=== PATIENT | male | born 1965 | race Hispanic/Latino ===

== ENCOUNTER 2021-03-25 14:35 | Emergency (ER) | payer OTHER ==
[2021-03-25] MEDS ORDERED: LIDOCAINE VISCOUS 2% SOLN 15 ML UDC ONE (17:59)
[2021-03-25 18:11] LABS: Absolute Lymphocytes (CBC) 1.5 K/uL (0.7-4.9); Hematocrit 50.1 % (39.6-49.0); Lymphocytes % 21.1 % (15.3-44.8); MPV 10.2 fL (7.6-11.3); RBC Red Blood Cell Count 5.76 M/uL (4.33-5.43)
--- NOTE | 2021-03-25 18:17 | RAD REPORT ---
EXAM DESCRIPTION: CT - Abdomen Pelvis W Contrast - 03/25/2021 6:08 pm CLINICAL HISTORY: urinary retention, prostate surgery 2 weeks earlier COMPARISON: <Comparisons> TECHNIQUE: Biphasic, helical CT imaging of the abdomen and pelvis was performed following 100 ml non -ionic IV contrast. No oral contrast was given. All CT scans are performed using dose optimization technique as appropriate and may include automated exposure control or mA/KV adjustment according to patient size. FINDINGS: No suspicious findings in the lung bases. The liver, spleen, and pancreas show no suspicious focal findings. Liver does show a mild diffuse fat ty infiltration. Gallbladder and biliary tree are also without suspicious finding. Symmetric renal function is seen with no hydronephrosis or suspicious renal mass. No pyelonephritis o r acute parenchymal process. Several small renal cysts are present. No adrenal abnormalities. Partially filled urinary bladder shows no evidence for abnormal retention. There is no wall thickenin g, mass, stone or other acute bladder finding. There is heterogeneous diminished attenuation centrall y within the prostate gland along the expected course of the prostatic urethra. There is heterogeneit y of the prostate parenchyma. No stranding or edema in the adjacent fat. No dilated bowel loops or bowel wall thickening. Patient has pronounced sigmoid diverticulosis withou t diverticulitis. No appendicitis or other acute GI process identifiable. No free air, free fluid or inflammatory stranding. No hernia, mass or bulky lymphadenopathy. No suspicious bony findings. IMPRESSION: Postsurgical or post procedure changes are evident in the central prostate gland. No spe cific CT finding that would indicate abscess or prostate infection. Urinary bladder is mostly contracted. No wall thickening or edema. No acute renal or ureteral process .
[2021-03-25 18:27] LABS: Potassium 3.6 mmol/L (3.5-5.1)
[2021-03-25 18:50] LABS: Urine Blood 2+ (Negative); Urine Glucose 2+ (Negative); Urine Protein Negative (Negative)
[2021-03-25 19:12] LABS: Urine Bacteria <20 /HPF (NONE SEEN); Urine RBC <5 /HPF (NONE SEEN)
--- NOTE | 2021-03-25 19:23 | EDPHYS ---
Physician Documentation [facility] Name: Kavon Francis Age: 56 yrs Sex: Male : 1965 Arrival Date: 03/25/2021 Time: 14:40 Bed 5 Private MD: ED Physician David Harrison Historical: - Allergies: 03/25 15:09 No Known Allergies; jd3 - Home Meds: 15:09 insulin [Active]; jd3 - PMHx: 15:09 Diabetes - IDDM; Hypertension; jd3 - PSHx: 15:09 None; jd3 - Immunization history:: Adult Immunizations up to date. - Social history:: Smoking status: Patient reports the use of cigarette tobacco products, denies chronic smoking, but will smoke occasionally. Vital Signs: 15:09 BP 158 / 105; Pulse 98; Resp 17 S; Temp 97.5(TE); Pulse Ox 98% on R/A; Weight 81.65 kg jd3 (R); Height 5 ft. 8 in. (172.72 cm) (R); Pain 10/10; 17:00 BP 148 / 88; Pulse 87; Resp 15; Pulse Ox 97% on R/A; hb 18:00 BP 142 / 71; Pulse 81; Resp 15; Pulse Ox 98% on R/A; hb 19:45 BP 132 / 70; Pulse 80; Resp 18; Pulse Ox 98% ; ea 15:09 Body Mass Index 27.37 (81.65 kg, 172.72 cm) jd3 MDM: 16:56 Patient medically screened. pm1 19:20 Data reviewed: vital signs. Data interpreted: Pulse oximetry: on room air is 98 %. pm1 Interpretation: normal. Counseling: I had a detailed discussion with the patient and/or guardian regarding: the historical points, exam findings, and any diagnostic results supporting the discharge/admit diagnosis, lab results, radiology results, the need for outpatient follow up, for definitive care, a urologist, to return to the emergency department if symptoms worsen or persist or if there are any questions or concerns that arise at home. 03/25 17:11 Order name: Urine Microscopic Only; Complete Time: 19:20 pm1 03/25 17:11 Order name: CBC with Diff pm1 03/25 17:11 Order name: Bladder Scanner; Complete Time: 17:59 pm1 03/25 17:11 Order name: BMP; Complete Time: 18:48 pm1 03/25 17:11 Order name: CT Abd/Pelvis - IV Contrast Only; Complete Time: 18:23 pm1 03/25 18:49 Order name: Urine Dipstick-Ancillary; Complete Time: 19:03 EDMS 03/25 17:11 Order name: Urine Dipstick-Ancillary (obtain specimen); Complete Time: 18:50 pm1 Administered Medications: No medications were administered Disposition: 03/25/21 19:23 Discharged to Home. Impression: Dysuria, Other urethral stricture. - Condition is Stable. - Discharge Instructions: Dysuria. - Medication Reconciliation Form, Thank You Letter, Antibiotic Education, Prescription Opioid Use form. - Follow up: Emergency Department; When: As needed; Reason: Worsening of condition. Follow up: Private Physician; When: 2 - 3 days; Reason: Recheck today's complaints, Continuance of care, Re-evaluation by your physician. - Problem is new. - Symptoms have improved. Addendum: 03/26/2021 09:53 Co-signature as Attending Physician, David Harrison MD. r n 12:44 Addendum: HPI: This 56 yrs old male presents ambulatory to the ER with complaints of p m1 dysuria. Onset of symptoms for 2 weeks. Associated symptoms and signs: Pertinent positives: suprapubic abdominal pain. pertinent negatives: n/v/d, fever, burning with urination. Chest pain, shortness of breath. Severity of pain: worse since onset of symptoms. The patient has been having difficulty urinating for 1 year. 1 month ago he had surgery in [place] to correct the issue. Has was urinating without any issues until 2 weeks ago when he started having to strain to urinate. 12:50 Addendum: ROS: Constitutional: Negative for fever, chills, and weight loss. p m1 Cardiovascular: negative for chest pain, palpitations, and edema, Respiratory: negative for shortness of breath, cough, and pleuritic chest pain. Back: Negative for injury and pain. : positive for dysuria. Negative for burning with urination and discharge. MS/Extremity: negative for injury and deformity, Skin: Negative for injury, rash, and discoloration. Neuro: Negative for headache, weakness, numbness, tingling. Abdomen/GI: Positive for suprapubic pain. Negative for n/v/d All other systems are negative . 12:55 Addendum: Exam: Constitutional: This is a well developed, well nourished patient who is p m1 awake, alert, and in no acute distress. Head/face: Normocephalic, atraumatic. Eyes: exam in negative for acute changes, EOMI. ENT: Mouth and lips normal, oral mucosa: normal, pink, and intact, moist. Cardiovascular: Regular rate, rhythm. Mo pulse deficits. Respiratory: Exam negative for acute changes. No respiratory distress, shortness of breath. Breath sounds clear to auscultation. Abdomen/GI: Soft all quadrants. Tenderness to suprapubic area. Back: No CVA or spinal tenderness. Neuro: Exam negative for acute changes. Orientation is normal. mentation is normal. Motor is normal , moves all fours. 13:01 Addendum: MDM: Initial bladder scan result 25 ml and 60 ml. Patient has a stricture at p m1 distal end of urinary meatus. However, patient is able to void in the ER and apparently empty bladder by himself. Patient does not require a alfaro and can be discharged to follow up with urology. Signatures: Dispatcher [employer] EDMS David Harrison MD MD rn Marinas, Patrick, RAGINI PROFESSIONAL DRIVER pm1 Brandy Mcallister RN RN ea Davies, Jonathon, RN RN jd3 Corrections: (The following items were deleted from the chart) 03/25 18:25 17:11 Alfaro ordered. pm1 sv 20:00 19:23 03/25/2021 19:23 Discharged to Home. Impression: Dysuria; Other urethral ea stricture. Condition is Stable. Forms are Medication Reconciliation Form, Thank You Letter, Antibiotic Education, Prescription Opioid Use. Follow up: Emergency Department; When: As needed; Reason: Worsening of condition. Follow up: Private Physician; When: 2 - 3 days; Reason: Recheck today's complaints, Continuance of care, Re-evaluation by your physician. Problem is new. Symptoms have improved. pm1
--- NOTE | 2021-03-25 19:23 | ER ---
Nurse's Notes [facility] Name: Kavon Francis Age: 56 yrs Sex: Male : 1965 Arrival Date: 03/25/2021 Time: 14:40 Bed 5 Private MD: Diagnosis: Dysuria;Other urethral stricture Presentation: 03/25 15:06 Chief complaint: Patient states: "I have been having problems using the restroom a long jd3 with other problems using the restroom. I go to use the restroom and it barely comes out. I am supposed to see the Urologist, but they can't get me an appointment. It am having a lot of problems getting it out and I really have to push to get it out. In [place] I had an operation on my prostate and I don't know if something went wrong or what was even done to it. all of this started about 2 weeks after my surgery.". Coronavirus screen: At this time, the client does not indicate any symptoms associated with coronavirus-19. Ebola Screen: Patient negative for fever greater than or equal to 101.5 degrees Fahrenheit, and additional compatible Ebola Virus Disease symptoms. Initial Sepsis Screen: Does the patient meet any 2 criteria? No. Patient's initial sepsis screen is negative. Does the patient have a suspected source of infection? No. Patient's initial sepsis screen is negative. Risk Assessment: Do you want to hurt yourself or someone else? Patient reports no desire to harm self or others. Onset of symptoms was February 21, 2021. 15:06 Method Of Arrival: Ambulatory jd3 15:06 Acuity: LUCI 3 jd3 Historical: - Allergies: 15:09 No Known Allergies; jd3 - Home Meds: 15:09 insulin [Active]; jd3 - PMHx: 15:09 Diabetes - IDDM; Hypertension; jd3 - PSHx: 15:09 None; jd3 - Immunization history:: Adult Immunizations up to date. - Social history:: Smoking status: Patient reports the use of cigarette tobacco products, denies chronic smoking, but will smoke occasionally. Screenin:56 Abuse screen: Denies threats or abuse. Denies injuries from another. Nutritional sv screening: No deficits noted. Tuberculosis screening: No symptoms or risk factors identified. Fall Risk None identified. Assessment: 17:05 General: Appears in no apparent distress. Behavior is calm, cooperative. Pain: Pain hb currently is 6 out of 10 on a pain scale. Neuro: Level of Consciousness is awake, alert, obeys commands, Oriented to person, place, time, situation. Cardiovascular: Patient's skin is warm and dry. Respiratory: Respiratory effort is even, unlabored, Respiratory pattern is regular, symmetrical. GI: No signs and/or symptoms were reported involving the gastrointestinal system. : Reports inability to void. EENT: No signs and/or symptoms were reported regarding the EENT system. Derm: Skin is pink, warm \\T\\ dry. Musculoskeletal: No signs and/or symptoms reported regarding the musculoskeletal system. 17:05 General: Appears in no apparent distress. comfortable, well developed, Behavior is sv calm, cooperative, appropriate for age. Pain: Complains of pain in suprapubic area Pain does not radiate. Pain currently is 10 out of 10 on a pain scale. Neuro: Level of Consciousness is awake, alert, obeys commands, Oriented to person, place, time, situation, Moves all extremities. Full function Gait is steady. Respiratory: Airway is patent Respiratory effort is even, unlabored, Respiratory pattern is regular, symmetrical. : Reports inability to void, completely. Derm: Skin is pink, warm \\T\\ dry. 17:58 Reassessment: Pt to CT. hb 18:43 Reassessment: Patient appears in no apparent distress at this time. Patient and/or hb family updated on plan of care and expected duration. Pain level reassessed. Patient is alert, oriented x 3, equal unlabored respirations, skin warm/dry/pink. 19:58 Reassessment: Patient and/or family updated on plan of care and expected duration. Pain ea level reassessed. Patient is alert, oriented x 3, equal unlabored respirations, skin warm/dry/pink. Discharge instruction given to patient verbalized the understanding of instruction. Pt left ED ambulatory tolerating well. Vital Signs: 15:09 BP 158 / 105; Pulse 98; Resp 17 S; Temp 97.5(TE); Pulse Ox 98% on R/A; Weight 81.65 kg jd3 (R); Height 5 ft. 8 in. (172.72 cm) (R); Pain 10/10; 17:00 BP 148 / 88; Pulse 87; Resp 15; Pulse Ox 97% on R/A; hb 18:00 BP 142 / 71; Pulse 81; Resp 15; Pulse Ox 98% on R/A; hb 19:45 BP 132 / 70; Pulse 80; Resp 18; Pulse Ox 98% ; ea 15:09 Body Mass Index 27.37 (81.65 kg, 172.72 cm) jd3 ED Course: 14:40 Patient arrived in ED. wm 15:08 Triage completed. jd3 15:10 Arm band placed on. jd3 16:53 Jaylon Borges, RAGINI is PHCP. pm1 16:53 David Harrison MD is Attending Physician. pm1 16:56 Katie Costello, ESTELA is Primary Nurse. sv 16:56 Patient has correct armband on for positive identification. Bed in low position. Call sv light in reach. Door closed. Head of bed lowered. 17:38 TRANSLATE FOR PROVIDER AND PATIENT SAMI SPEAKING. [facility] 17:57 Multiple failed attempts to place alfaro 16F down to 8F, CABINET PROFESSIONAL Jaylon notified. hb 18:08 CT Abd/Pelvis - IV Contrast Only In Process Unspecified. EDMS 18:50 Urine Microscopic Only Sent. 5 18:50 Urine collected: clean catch specimen, clear. 5 19:03 TRANSLATED FOR PROVIDER AND PATIENT SAMI SPEAKING . [facility] 19:07 Report given to Brandy PALMER and Justin PALMER. sv 19:08 Primary Nurse role handed off by Katie Costello RN 19:59 IV discontinued, intact, bleeding controlled, No redness/swelling at site. Pressure ea dressing applied. Administered Medications: No medications were administered Outcome: 19:23 Discharge ordered by MD. pm1 19:59 Discharged to home ambulatory, with family. ea 19:59 Condition: stable 19:59 Discharge instructions given to patient, Instructed on discharge instructions, follow up and referral plans. Demonstrated understanding of instructions, follow-up care. 20:00 Patient left the ED. ea Signatures: Dispatcher [employer] EDMS Katie Costello RN RN sv Marinas, Patrick, RAGINI CABINET PROFESSIONAL pm1 Lidia Schofield RN RN hb Martinez, Maria [facility] Brandy Mcallister RN RN ea Davies, Jonathon, RN RN jd3 Marsh, Wendy Corrections: (The following items were deleted from the chart) 15:12 15:06 Chief complaint: Patient states: "I have been having problems using the restroom jd3 a long with other problems using the restroom. I go to use the restroom and it barely comes out. I am supposed to see the Urologist, but they can't get me an appointment." jd3 15:13 15:06 Chief complaint: Patient states: "I have been having problems using the restroom jd3 a long with other problems using the restroom. I go to use the restroom and it barely comes out. I am supposed to see the Urologist, but they can't get me an appointment. It am having a lot of problems getting it out and I really have to push to get it out." jd3 15:14 15:06 Chief complaint: Patient states: "I have been having problems using the restroom jd3 a long with other problems using the restroom. I go to use the restroom and it barely comes out. I am supposed to see the Urologist, but they can't get me an appointment. It am having a lot of problems getting it out and I really have to push to get it out. In [place] I had an operation on my prostate and I don't know if something went wrong or what was even done to it." jd3 17:59 17:56 Reassessment: hb hb
[2021-03-25 20:04] VITALS: TEMP 97.5
[2021-03-25 20:07] VITALS: O2SAT 98
[2021-03-25 20:09] VITALS: BP 132/70
[2021-03-25 21:03] LABS: Blood Morphology Comment NOT SEEN (NOT SEEN); Platelet Estimate ADEQ
== END 2021-03-25 20:00 | disposition home or self-care (01) ==
LOC: ER 14:35
DX: N35.819 Other urethral stricture, male, unspecified site (principal); I10 Essential (primary) hypertension; E11.9 Type 2 diabetes mellitus without complications; Z79.4 Long term (current) use of insulin; F17.210 Nicotine dependence, cigarettes, uncomplicated
CPT/HCPCS: 85025; 80048; 36415; 82565; 74177; Q9967; 81003; 81015; 99283

== ENCOUNTER 2022-11-02 12:47 | Emergency (ER) | payer OTHER ==
--- OUTSIDE RECORDS SUMMARY | 2022-11-02 12:50 | XMS REPORT | Continuity of Care Document ---
:1965 [address] [facility] t Address [address] [place] [address] Care Team Providers Name Role Phone Unavailable Unavailable Unavailable Problems This patient has no known problems. Allergies, Adverse Reactions, Alerts This patient has no known allergies or adverse reactions. Medications This patient has no known medications. Procedures This patient has no known procedures. Results Test Description Test Time Test Comments Results Result Comments Source HEMOGLOBIN A1c 2022-03-28 06:44:10 Test Item Value Reference Range Interpretation Comme nts HEMOGLOBIN A1c (test code = 13.0 % 4.2-5.6 H [employer] [address]44) GUIDELINES FOR HGB A1C: PREDIABETES/INC REASED RISK . . . . . . . 5.7-6.4% ROSS GNOSIS OF DIABETES . . . . . . . . . >=6 .5% WITH CONFIRMATION OR APPROPRIATE SYM PTOMS NOTE: ASSAY MAY BE AFFECTED BY HEM OGLOBINOPATHIES (SICKLE CELL ANEMIA, S- C DISEASE, OTHERS) OR ARTIFICIALLY LO WERED BY DECREASED RED CELL SURVIVAL ( HEMOLYTIC ANEMIAS, BLOOD LOSS, ETC.). CO NSIDER ALTERNATE TESTING OR LABORATORY C ONSULTATION. TSH, THIRD [id number] 05:35:36 Test Item Value Reference Range Interpretation Comments TSH, THIRD GENERATION (test code 2.730 UIU/ML 0.400-4.100 = 2821) PSA, [id number] 05:35:36 Test Item Value Reference Range Interpretation Comments PSA, TOTAL 0.46 NG/ML See_Comment NOTE: Methodol ogy is Josi (test code = Eric Electroch emiluminescence 2606) Immunoassay tra ceable to WHO reference stand korina 96/760. UNLESS OTHERWIS E INDICATED, ALL TESTING PERFORM ED ATCLINICAL PATHOLOGY LABOR [employer] [address] [place] [id number] LABORATORY DIRE CTOR: EDUARD JACOBS M.D. CLIA NUMBER [id number] [facility] [place] [id number] [A utomated message] The sy stem which generated this result transmitted ref erence range: <=4.00. The ref erence range was not used to int erpret this result as eran l/abnormal. LIPID [id number] 05:07:51 Test Item Value Reference Range Interpretation Comments CHOLESTEROL (test 272 MG/DL <200 H code = 2210) TRIGLYCERIDES (test 572 MG/DL <150 H code = 2232) HDL CHOLESTEROL 33 MG/DL >39 L (test code = 2220) CALC LDL CHOL (test (NOTE) MG/DL <100 UNABLE T O CALCULATE A code = 2237) VALID LDL WALTER STEROL WHEN THE TRIGLYCERIDEVAL UE IS GREATER THAN 40 0 MG/DL.UNABLE TO CALCULATE A TEE ID LDL CHOLESTEROL WHE N THE TRIGLYCERIDEVAL UE IS GREATER THAN 40 0 MG/DL. NOTE: CALCULATE D LDL IS BASED ON NATALIE -SILVA METHOD WHICHINC LUDES ADJUSTABLE TRIGLYCERIDE:VL DL CHOLESTEROL RAT IO.THIS FACTOR VARIES B Y MEASURED TRIGLY CERIDE AND NON-HDLCHOL ESTEROL CONCENTRATIONS WITH INCREASED CALCU LATED LDL SEENIN HIGH ER TRIGLYCERIDE OR LOWER NON-HDL SPECIME NS. FOR MOREINFORMATION , SEE CLIENT ANNOUNCE MENT AT [email or web address]-[email or web address] RISK RATIO LDL/HDL (NOTE) RATIO <3.55 UNABLE T O CALCULATE (test code = 2238) COMPREHENSIVE METABOLIC [id number] 05:07:51 Test Item Value Reference Range Interpretation Comments GLUCOSE (test code = 381 MG/DL 70-99 H 2216) BUN (test code = 30 MG/DL 6-20 H 2207) CREATININE (test 1.57 MG/DL 0.80-1.40 H code = 2214) eGFR (2020 CKD-EPI) 51 ML/MIN/1.73 >60 L (test code = 08529) CALC BUN/CREAT (test 19 RATIO 6-28 code = 2235) SODIUM (test code = 137 MEQ/L 345-450 1641) POTASSIUM (test code 5.2 MEQ/L 3.5-5.4 = 2227) CHLORIDE (test code 98 MEQ/L 95-107 = 2214) CARBON DIOXIDE (test 26 MEQ/L 19-31 code = 2206) CALCIUM (test code = 10.4 MG/DL 8.5-10.5 2208) PROTEIN, TOTAL (test 7.9 G/DL 6.1-8.3 code = 222) ALBUMIN (test code = 4.7 G/DL 3.5-5.2 2200) CALC GLOBULIN (test 3.2 G/DL 1.9-3.7 code = 2240) CALC A/G RATIO (test 1.5 RATIO 1.0-2.6 code = 2234) BILIRUBIN, TOTAL 0.6 MG/DL See_Comment [Automated message] (test code = 220) The syste m which generated this result transmit rosalinda reference range : <=1.2. The refe rence range was not u sed to interpret th is result as normal/abnormal . ALKALINE PHOSPHATASE 105 U/L 40-123 (test code = 2203) AST (test code = 13 U/L 9-50 2217) ALT (test code = 20 U/L 5-50 2218) VITAMIN D, 25 [id number] 04:30:45 Test Item Value Reference Range Interpretation Comments VITAMIN D, 25 OH 21 NG/ML SEE BELOW L NOTE: 25-H YDROXYVITAMIN D (test code = 4958) ASSAY INC LUDES 25-HYDROXYVITAM IN D2 AND D3. METHODOLOGY IS CHEMILUMINESCEN T IMMUNOASSAY. INTERPRETIVE RA NGES PEDIATRIC (<17 YEARS) . . . . . . . . . . . NG/ML 20-100ADULT: IN SUFFICIENT . . . . . . . . . . . . . . NG/ML <20 SUBOP TIMAL . . . . . . . . . . . . . . . NG/ML 20-29 OPT IMAL . . . . . . . . . . . . . . . . . NG/ML 30-100 CBC W/AUTO DIFF WITH [id number] 02:32:39 Test Item Value Reference Range Interpretation Comments WBC (test code = 4.7 K/UL 3.5-11.0 1001) RBC (test code = 5.68 M/UL 4.50-6.10 1002) HEMOGLOBIN (test code 16.8 G/DL 13.5-17.0 = 1003) HEMATOCRIT (test code 51.4 % 40.0-51.0 H = 1004) MCV (test code = 90.5 fL 80.0-99.0 1005) MCH (test code = 29.6 PG 25.0-33.0 1006) MCHC (test code = 32.7 G/DL 31.0-36.0 1007) RDW (test code = 13.0 % 11.5-15.0 1038) NEUTROPHILS (test 51.4 % code = 1008) LYMPHOCYTES (test 34.8 % code = 1010) MONOCYTES (test code 11.0 % = 1011) EOSINOPHILS (test 1.5 % code = 1012) BASOPHILS (test code 0.9 % = 1013) IMMATURE GRANULOCYTES 0.4 % (test code = 1036) NUCLEATED RBCS (test 0.0 /100 WBC'S See_Comment [Aut omated code = 1065) message] The sy stem which generated this result transmitted reference range : 0.0. The refere nce range was not u sed to interpret th is result as normal/abnormal . PLATELET COUNT (test 172 K/UL 130-400 code = 1015) ABSOLUTE NEUTROPHILS 2.39 K/UL 1.50-7.50 (test code = 1066) ABSOLUTE LYMPHOCYTES 1.62 K/UL 1.00-4.00 (test code = 1067) ABSOLUTE MONOCYTES 0.51 K/UL 0.20-1.00 (test code = 1068) ABSOLUTE EOSINOPHILS 0.07 K/UL 0.00-0.50 (test code = 1040) ABSOLUTE BASOPHILS 0.04 K/UL 0.00-0.20 (test code = 1069) ABS IMMATURE 0.02 K/UL 0.00-0.10 GRANULOCYTES (test code = 1020) ABS NUCLEATED RBCS 0.00 K/UL 0.00-0.11 (test code = 82534)
[2022-11-02] MEDS ORDERED: TENECTEPLASE 50 MG/10 ML VIAL IV ONE (12:58)
[2022-11-02] MEDS ORDERED: ASPIRIN 81 MG CHEWABLE TABLET ONE (12:58)
[2022-11-02] MEDS ORDERED: CLOPIDOGREL 75 MG TABLET ONE (12:59)
[2022-11-02] MEDS ORDERED: MORPHINE 4 MG/ML SYR ONE (13:02)
[2022-11-02] MEDS ORDERED: ONDANSETRON 4 MG/2 ML VIAL ONE (13:02)
[2022-11-02 13:11] LABS: Hematocrit 52.8 % (39.6-49.0); Lymphocytes % 25.5 % (15.3-44.8); MCV 89.1 fL (80-100); MPV 9.5 fL (7.6-11.3); RBC Red Blood Cell Count 5.93 M/uL (4.33-5.43)
[2022-11-02] MEDS ORDERED: HEPARIN/D5W 25,000 UNIT/500 ML BAG IV ONE (13:22)
--- NOTE | 2022-11-02 13:30 | EDPHYS ---
Physician Documentation [facility] Name: Kavon Francis Age: 57 yrs Sex: Male : 1965 Arrival Date: 11/02/2022 Time: 12:50 Bed 12 Private MD: ED Physician Robel Samuels HPI: 11/02 13:26 This 57 yrs old Male presents to ER via Ambulatory with complaints of Chest kdr Pain. 13:27 Patient started with chest pain that started about an hour prior to arrival. Patient kdr has some nausea but no vomiting. Patient states that the chest pain is nonradiating.. Onset: The symptoms/episode began/occurred suddenly, just prior to arrival, 1 hour(s) ago. Severity of symptoms: At their worst the symptoms were moderate severe incapacitating just prior to arrival, in the emergency department the symptoms are unchanged. The patient has not experienced similar symptoms in the past. The patient has not recently seen a physician. Historical: - Allergies: 12:51 No Known Allergies; kr3 12:51 No Known Allergies; iw - Home Meds: 12:51 metformin [Active]; Enalapril Oral [Active]; iw - PMHx: 12:51 Diabetes - IDDM; Hypertension; kr3 12:51 Diabetes - IDDM; Hypertension; iw - Immunization history:: Adult Immunizations up to date. - Social history:: Smoking status: unknown. ROS: 13:27 Constitutional: Negative for fever, chills, and weight loss, Eyes: Negative for injury, kdr pain, redness, and discharge, ENT: Negative for injury, pain, and discharge, Neck: Negative for injury, pain, and swelling, Respiratory: Negative for shortness of breath, cough, wheezing, and pleuritic chest pain, Abdomen/GI: Negative for abdominal pain, nausea, vomiting, diarrhea, and constipation, Back: Negative for injury and pain, : Negative for injury, bleeding, discharge, and swelling, MS/Extremity: Negative for injury and deformity, Skin: Negative for injury, rash, and discoloration, Neuro: Negative for headache, weakness, numbness, tingling, and seizure activity. Psych: Negative for depression, anxiety, suicide ideation, homicidal ideation, and hallucinations, Allergy/Immunology: Negative for hives, rash, and allergies, Endocrine: Negative for neck swelling, polydipsia, polyuria, polyphagia, and marked weight changes, Hematologic/Lymphatic: Negative for swollen nodes, abnormal bleeding, and unusual bruising. 13:27 Cardiovascular: Positive for chest pain, Negative for edema, orthopnea, palpitations, paroxysmal nocturnal dyspnea. 13:27 Abdomen/GI: Positive for nausea, Negative for vomiting, diarrhea, constipation. Exam: 13:27 Constitutional: This is a well developed, well nourished patient who is awake, alert, kdr and in moderate distress. Head/Face: Normocephalic, atraumatic. Eyes: Pupils equal round and reactive to light, extra-ocular motions intact. Lids and lashes normal. Conjunctiva and sclera are non-icteric and not injected. Cornea within normal limits. Periorbital areas with no swelling, redness, or edema. Neck: Trachea midline, no thyromegaly or masses palpated, and no cervical lymphadenopathy. Supple, full range of motion without nuchal rigidity, or vertebral point tenderness. No Meningismus. Chest/axilla: Normal chest wall appearance and motion. Nontender with no deformity. No lesions are appreciated. Cardiovascular: Regular rate and rhythm with a normal S1 and S2. No gallops, murmurs, or rubs. Normal PMI, no JVD. No pulse deficits. Respiratory: Lungs have equal breath sounds bilaterally, clear to auscultation and percussion. No rales, rhonchi or wheezes noted. No increased work of breathing, no retractions or nasal flaring. Abdomen/GI: Soft, non-tender, with normal bowel sounds. No distension or tympany. No guarding or rebound. No evidence of tenderness throughout. Back: No spinal tenderness. No costovertebral tenderness. Full range of motion. Skin: Warm, dry with normal turgor. Normal color with no rashes, no lesions, and no evidence of cellulitis. MS/ Extremity: Pulses equal, no cyanosis. Neurovascular intact. Full, normal range of motion. Neuro: Awake and alert, GCS 15, oriented to person, place, time, and situation. Cranial nerves II-XII grossly intact. Motor strength 5/5 in all extremities. Sensory grossly intact. Cerebellar exam normal. Normal gait. Psych: Awake, alert, with orientation to person, place and time. Behavior, mood, and affect are within normal limits. 13:27 ECG was reviewed by the Attending Physician. Vital Signs: 12:51 BP 150 / 94; Pulse 61; Resp 18; Pulse Ox 97% ; Weight 81 kg (M); Height 5 ft. 7 in. iw (170.18 cm); Pain 8/10; 13:05 BP 149 / 98; Pulse 69; Resp 22 S; Temp 98.0(TE); Pulse Ox 96% on R/A; iw 13:15 BP 157 / 99; Pulse 75; Resp 16; Pulse Ox 98% on R/A; iw 12:51 Body Mass Index 27.97 (81.00 kg, 170.18 cm) iw MDM: 13:30 Patient medically screened. kdr 13:30 Data reviewed: vital signs, nurses notes, lab test result(s), EKG, radiologic studies. kdr Management of patient was discussed with the following: District Manager Primary Care Sales: Dr. rodriguez. I considered the following discharge prescriptions or medication management in the emergency department Medications were administered in the Emergency Department. See MAR. Independent interpretation of the following test(s) in the Emergency Department EKG: See my EKG interpretation above. 02 12:56 Order name: Basic Metabolic Panel 11/02 12:56 Order name: CBC with Diff eb 11/02 12:56 Order name: Troponin HS 11/02 12:56 Order name: XRAY Chest (1 view) 11/02 12:56 Order name: EKG; Complete Time: 12:57 11/02 12:56 Order name: Cardiac monitoring; Complete Time: 13:27 11/02 12:56 Order name: EKG - Nurse/Tech; Complete Time: 13:27 11/02 12:56 Order name: IV Saline Lock; Complete Time: 13:27 11/02 12:56 Order name: Labs collected and sent; Complete Time: 13:27 11/02 12:56 Order name: O2 Per Protocol; Complete Time: 13:27 11/02 12:56 Order name: O2 Sat Monitoring; Complete Time: 13:27 eb EC:27 Rate is 85 beats/min. Rhythm is regular, Sinus Rhythm with No ectopy. QRS Romeo is kdr Normal. MS interval is normal. QRS interval is normal. ST Segment is elevated in leads II, III, aVF, 2-5mm. Clinical impression: Acute NM. Administered Medications: 13:00 Drug: Aspirin Chewable Tablet 324 mg Route: PO; iw 13:15 Follow up: Response: No adverse reaction iw 13:12 Drug: morphine 4 mg Route: IVP; Infused Over: 4 mins; Site: right forearm; iw 13:30 Follow up: Response: No adverse reaction; Pain is decreased iw 13:12 Drug: Zofran (Ondansetron) 2 mg Route: IVP; Site: right forearm; iw 13:20 Follow up: Response: No adverse reaction iw 13:12 Not Given (Duplicate Order): Aspirin Chewable Tablet 324 mg PO once; 81 mg tablets x 4 iw 13:12 Drug: PlaVIX (clopidogrel) 300 mg Route: PO; iw 13:20 Follow up: Response: No adverse reaction iw 13:13 Drug: Tenecteplase 45 mg {Co-Signature: mark3 (Shannen Chavez RN).} Route: IV; Rate: iw calculated rate; Site: right forearm; 13:15 Follow up: IV Status: Completed infusion iw 13:26 Drug: Heparin (NM Drip) 12 units/kg/hr - (HEParin 52945 units, D5W 500 ml) iw {Co-Signature: mark3 (Shannen Chavez RN).} Route: IV; Rate: calculated rate; Site: right forearm; 13:43 Follow up: IV Status: Infusion continued upon transfer iw Disposition Summary: 11/02/22 13:30 Transfer Ordered Transfer Location: [facility] kdr Reason: Higher level of care kdr Condition: Critical kdr Problem: new kdr Symptoms: have improved kdr Accepting Physician: Dr. Rodriguez(11/02/22 13:38) kr3 Diagnosis - ST elevation (STEMI) myocardial infarction of inferior wall kdr Discharge Instructions: - Discharge Summary Sheet iw Forms: - Medication Reconciliation Form kdr - SBAR form iw Signatures: Dispatcher [employer] Robel Hopson MD MD kdr Anum Mazariegos RN RN iw Veronica Espinoza Kelley, RN RN kr3 Shannen Chavez RN kr3 Corrections: (The following items were deleted from the chart) 13:38 13:30 Dr. Rodriguez kdr kr3
--- NOTE | 2022-11-02 13:30 | ER ---
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 Coronavirus screen: kr3 Client denies travel out of the [place] in the last 14 days. At this time, the client does not indicate any symptoms associated with coronavirus-19. Ebola Screen: Patient denies travel to an Ebola-affected area in the 21 days before illness onset. Initial Sepsis Screen: Does the patient meet any 2 criteria? No. Patient's initial sepsis screen is negative. Does the patient have a suspected source of infection? No. Patient's initial sepsis screen is negative. Risk Assessment: Do you want to hurt yourself or someone else? Patient reports no desire to harm self or others. Onset of symptoms was November 02, 2022. 12:51 Method Of Arrival: Ambulatory kr3 12:51 Acuity: LUCI 2 kr3 Triage Assessment: 13:00 General: Appears uncomfortable, Behavior is calm. iw Historical: - Allergies: 12:51 No Known Allergies; kr3 12:51 No Known Allergies; iw - Home Meds: 12:51 metformin [Active]; Enalapril Oral [Active]; iw - PMHx: 12:51 Diabetes - IDDM; Hypertension; kr3 12:51 Diabetes - IDDM; Hypertension; iw - Immunization history:: Adult Immunizations up to date. - Social history:: Smoking status: unknown. Screenin:28 [facility] ED Fall Risk Assessment (Adult) Score/Fall Risk Level 0 - 2 = Low Risk. Abuse iw screen: Denies threats or abuse. Denies injuries from another. Nutritional screening: No deficits noted. Tuberculosis screening: No symptoms or risk factors identified. Assessment: 12:55 General: Appears uncomfortable, ill, Behavior is cooperative. Pain: Complains of pain iw in anterior aspect of left upper chest and left breast Pain radiates to anterior aspect of left shoulder Pain currently is 10 out of 10 on a pain scale. Pain began 1 hour ago. Is continuous. Neuro: Level of Consciousness is awake, alert, obeys commands, Oriented to person, place, time, situation, Moves all extremities. Full function. Cardiovascular: Reports chest pain, lightheadedness, shortness of breath, Capillary refill < 3 seconds in bilateral fingers Patient's skin is warm and dry. Respiratory: Respiratory effort is even, unlabored, Respiratory pattern is regular. GI: Abdomen is flat, non-distended. 13:28 Reassessment: Life FLight at beside. iw Vital Signs: 12:51 BP 150 / 94; Pulse 61; Resp 18; Pulse Ox 97% ; Weight 81 kg (M); Height 5 ft. 7 in. iw (170.18 cm); Pain 8/10; 13:05 BP 149 / 98; Pulse 69; Resp 22 S; Temp 98.0(TE); Pulse Ox 96% on R/A; iw 13:15 BP 157 / 99; Pulse 75; Resp 16; Pulse Ox 98% on R/A; iw 12:51 Body Mass Index 27.97 (81.00 kg, 170.18 cm) iw ED Course: 12:50 Patient arrived in ED. kr3 12:51 Triage completed. kr3 12:52 Arm band placed on Patient placed in an exam room, on a stretcher. kr3 12:53 Anum Mazariegos, RN is Primary Nurse. iw 12:55 Patient has correct armband on for positive identification. Client placed on continuous iw cardiac and pulse oximetry monitoring. NIBP monitoring applied. 12:57 Robel Samuels MD is Attending Physician. jmm 13:13 XRAY Chest (1 view) In Process Unspecified. EDMS 13:14 Inserted saline lock: 20 gauge in right forearm, using aseptic technique. kr3 13:27 Basic Metabolic Panel Sent. iw 13:36 No provider procedures requiring assistance completed. Patient transferred, IV remains iw in place. Patient maintains SpO2 saturation greater than 95% on room air. Administered Medications: 13:00 Drug: Aspirin Chewable Tablet 324 mg Route: PO; iw 13:15 Follow up: Response: No adverse reaction iw 13:12 Drug: morphine 4 mg Route: IVP; Infused Over: 4 mins; Site: right forearm; iw 13:30 Follow up: Response: No adverse reaction; Pain is decreased iw 13:12 Drug: Zofran (Ondansetron) 2 mg Route: IVP; Site: right forearm; iw 13:20 Follow up: Response: No adverse reaction iw 13:12 Not Given (Duplicate Order): Aspirin Chewable Tablet 324 mg PO once; 81 mg tablets x 4 iw 13:12 Drug: PlaVIX (clopidogrel) 300 mg Route: PO; iw 13:20 Follow up: Response: No adverse reaction iw 13:13 Drug: Tenecteplase 45 mg {Co-Signature: saturnino (Shannen Chavez RN).} Route: IV; Rate: iw calculated rate; Site: right forearm; 13:15 Follow up: IV Status: Completed infusion iw 13:26 Drug: Heparin ([place] Drip) 12 units/kg/hr - (HEParin 69671 units, D5W 500 ml) iw {Co-Signature: saturnino (Shannen Chavez RN).} Route: IV; Rate: calculated rate; Site: right forearm; 13:43 Follow up: IV Status: Infusion continued upon transfer iw Medication: 13:20 VIS not applicable for this client. iw Outcome: 13:30 ER care complete, transfer ordered by . kdr 13:37 Transferred by helicopter to [facility], Transfer form completed. iw X-rays sent w/ patient. 13:37 critical 13:37 Discharge instructions given to patient, family, Instructed on the need for transfer, Demonstrated understanding of 13:38 Patient left the ED. kr3 Signatures: Dispatcher [employer] EDMS Robel Samuels MD MD kdr Sheldon Waller PA PA jmm Williams, Irene, RN RN iw Reid, Kelley, RN RN kr3 Shannen Chavez RN kr3 Corrections: (The following items were deleted from the chart) 13:16 12:51 BP 150 / 94; Pulse 61bpm; Resp 18bpm; Pulse Ox 97%; 86.18 kg; Height 5 ft. 7 in.; iw BMI: 29.7; Pain 8/10; kr3
[2022-11-02 13:34] LABS: Potassium 4.2 mmol/L (3.5-5.1)
--- NOTE | 2022-11-02 13:43 | RAD REPORT ---
EXAM DESCRIPTION: RAD - Chest Single View - 11/02/2022 1:11 pm CLINICAL HISTORY: CHEST PAIN COMPARISON: Portable 07/08/2022 TECHNIQUE: AP portable chest image was obtained 11/02/2022 1:11 pm . FINDINGS: No new mass or consolidation. Interstitial pattern is prominent but not clearly different from comparison. Heart and vasculature are normal. No measurable pleural effusion and no pneumothorax. No acute bony abnormality seen. No acute aortic findings suspected. IMPRESSION: No acute cardiopulmonary process. No significant change from comparison study.
[2022-11-02 13:51] VITALS: BP 150/94; O2SAT 97
== END 2022-11-02 13:38 | disposition short-term general hospital (02) ==
LOC: ER 12:47
DX: I21.19 ST elevation (STEMI) myocardial infarction involving other coronary artery of inferior wall (principal); E11.9 Type 2 diabetes mellitus without complications; I10 Essential (primary) hypertension
CPT/HCPCS: 96365; 92977; 93005; 85025; 80048; 36415; 84484; 71045; 96375; 99285; J3101; J1644; J2405

== ENCOUNTER 2023-03-23 13:53 | Emergency (ER) | payer OTHER ==
--- OUTSIDE RECORDS SUMMARY | 2023-03-23 13:59 | XMS REPORT | Continuity of Care Document ---
:1965 Author Organization [facility] t Address [address] [facility] [address] [place] [address] Care Team Providers Name Role Phone CLYDE ESCALERA Attending Clinician Unavailable CHARISMA DELAROSA Attending Clinician Unavailable OTTO ASHLEY Attending Clinician Unavailable ADARSH DICKEY Attending Clinician Unavailable CHANI RAJPUT Attending Clinician Unavailable [id number] Attending Clinician Unavailable DAVID GARCIA Attending Clinician Unavailable [id number] Attending Clinician Unavailable DONNELL MORA Attending Clinician Unavailable MARIELY TRIPP Attending Clinician Unavailable TOMMY DELGADO Attending Clinician Unavailable PL, TECH 1 Attending Clinician Unavailable TOMOGRAPHY, MP OPTICAL COHERENCE Attending Clinician Unavail able GIANCARLO MORROW Attending Clinician Unavailable HERBERT NAYAK Attending Clinician Unavailable RAKESH GOMEZ Attending Clinician Unavailable ROBERTO MARSHALL Attending Clinician Unavailable [id number] Attending Clinician Unavailable EMILY JUSTICE Attending Clinician Unavailable PEREZ VALLE Attending Clinician Unavailable KENIA BOYKIN Attending Clinician Unavailable EMILY JUSTICE Admitting Clinician Unavailable Payers Payer Name Policy Type Policy Number Effective Date Expiration Date S ource [employer]ET[employer] MP [facility] SILVER 9 [id number] 2022 $30 [id number] BASIC 94 00:00:00 AETNA [facility] 2 [id number] 2023 [employer] 00:00:00 [employer]ETNA HMO POS QPOS [id number] 2022 00:00:00 Problems Condition Condition Condition Status Onset Resolution Last Treating Co mments Source Name Details Category Date Date Treatment Clinician Date Herpes Herpes Disease Active Julisa zoster zoster - Seybold without without 00:00: - complicati complicati 00 Ex terna on on l 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 heart heart 1. 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 00:00: - mixed mixed 00 Externa hyperlipid hyperlipid l emia emia Blurry Blurry Disease Active Julisa vision vision 2-20 Seybold 00:00: - 00 Externa l Allergies, Adverse Reactions, Alerts Allergy Allergy Status Severity Reaction(s) Onset Inactive Treating Comm ents Source Name Type Date Date Clinician NO KNOWN Allergy Active [facility] Social History Social Habit Start Date Stop Date Quantity Comments Source Gender identity Julisa Se ybold - External Sexual orientation Julisa Seybold - External History of tobacco Cigarette Smoker Julisa Headleyybold use - External Alcohol intake 2023-02-10 2023-02-10 Ex-drinker Julisa Cash bold 00:00:00 00:00:00 (finding) - External History of Social 2022-11-20 2022-11-20 Julisa Tucker function 00:00:00 00:00:00 - External Tobacco use and 2022-11-20 2022-11-20 Smokeless tobacco Mert Tucker exposure 00:00:00 00:00:00 non-user - External Sex [birth year] Julisa phillips 00:00:00 00:00:00 - External Smoking Status Start Date Stop Date Source Tobacco smoking consumption Jojo Tucker - External unknown Occasional tobacco smoker 2022-11-20 00:00:00 Mert Tucker - External Medications Ordered Filled Start Stop Current Ordering Indication Dosage Frequency Signature Comments Components Source Medication Medication Date Date Medication? Clinician (SIG) Name Name Insulin 2022- No 15U Inject 15 Jojo ey Aspart 100 5-26 05-26 units into Se ybold UNIT/ML 16:36: 00:00 the skin 3 - injection 12 :00 times Externa Solution daily l (before meals) Aspirin 81 Yes 81mg Take 1 Kelse y MG oral 5-26 tablet (81 Seybol d Tablet 16:27: mg total) - Delayed 49 by mouth Externa Response daily l Nitroglycer Yes .4mg Place 1 Emiliano sey in 0.4 MG 5-26 tablet Seybold sublingual 16:27: (0.4 mg - SL Tab 49 total) Externa under the l tongue every 5 minutes as needed for chest pain 1 to 2 tablets under the tongue at onset of attack. Repeat as needed up to 3 times. If not relieved CALL 911. Lancets Yes by does Julisa does not 5-26 not apply Seybol d apply Misc 16:27: route - 49 Externa l Blood Yes 1{devic 1 device Kelse y Glucose 5-26 e} by does Seybold Monitoring 16:27: not apply - Suppl does 49 route Externa not apply l Kit Metoprolol Yes 1{tbl} Take 1 Emiliano sey Succinate 5-26 tablet by Seybo ld 25 MG oral 16:27: mouth - Capsule ER 49 daily Externa 24 Hour l Sprinkle Valacyclovi Yes [id number] 1000mg Take 1 Julisa r HCl 5-26 tablet Seybold (Valtrex) 1 00:00: (1,000 mg - g oral 00 total) by Externa Tablet mouth 3 l times daily Gabapentin Yes [id number] 100mg Q.[id number] Take 1 Julisa 100 MG oral 5-26 [id number] capsule Seybold Capsule 00:00: 3D (100 mg - 00 total) by Externa mouth 3 l times daily as needed Atorvastati Yes [id number] 40mg Take 1 Julisa n Calcium 5-26 3 tablet (40 Seyb old 40 MG oral 00:00: mg total) - Tablet 00 by mouth Externa nightly l Insulin Yes [id number] 15U Inject 15 K elsey Aspart 100 5-26 units into Sey bold UNIT/ML 00:00: the skin - injection 00 in the Externa Solution morning l and 15 units in the evening. Inject with meals. Metformin Yes [id number] 500mg Take 1 K elsey HCl 500 MG 5-26 tablet Seybold oral Tablet 00:00: (500 mg - 00 total) by Externa mouth in l the morning and 1 tablet (500 mg total) in the evening. Take with meals. Aspirin 81 Yes 81mg Take 1 Kelse y MG oral 5-16 tablet (81 Seybol d Tablet 15:10: mg total) - Delayed 16 by mouth Externa Response daily l Insulin Yes 15U Inject 15 Kelse y Aspart 100 5-16 units into Sey bold UNIT/ML 15:10: the skin 3 - injection 16 times Externa Solution daily l (before meals) Nitroglycer Yes .4mg Place 1 Emiliano sey in 0.4 MG 5-16 tablet Seybold sublingual 15:10: (0.4 mg - SL Tab 16 total) Externa under the l tongue every 5 minutes as needed for chest pain 1 to 2 tablets under the tongue at onset of attack. Repeat as needed up to 3 times. If not relieved CALL 911. Lancets Yes by does Julisa does not 5-16 not apply Seybol d apply Misc 15:10: route - 16 Externa l Blood Yes 1{devic 1 device Kelse y Glucose 5-16 e} by does Seybold Monitoring 15:10: not apply - Suppl does 16 route Externa not apply l Kit Metoprolol Yes 1{tbl} Take 1 Emiliano sey Succinate 5-16 tablet by Seybo ld 25 MG oral 15:10: mouth - Capsule ER 16 daily Externa 24 Hour l Sprinkle Acetaminoph 2022- No 650mg Q.25D Take 2 K elsey en 4-28 -28 tablets Seybold (TYLENOL) 16:25: 00:00 (650 mg - 325 MG oral 36 :00 total) by Ext candido Tablet mouth l tablet every 6 hours as needed for pain Tamsulosin 2022- No .4mg Take 1 Jojo ey HCl 0.4 MG -28 - capsule Seybo ld oral 16:25: 00:00 (0.4 mg - Capsule 27 :00 total) by Externa mouth l every night at bedtime Metoprolol Yes 1{tbl} Take 1 Emiliano sey Succinate 4-28 tablet by Seybo ld 25 MG oral 16:24: mouth - Capsule ER 18 daily Externa 24 Hour l Sprinkle Aspirin 81 0 Yes 81mg Take 1 Kelse y MG oral 4-28 tablet (81 Seybol d Tablet 16:00: mg total) - Delayed 15 by mouth Externa Response daily l Insulin Yes 15U Inject 15 Kelse y Aspart 100 4-28 units into Sey bold UNIT/ML 16:00: the skin 3 - injection 15 times Externa Solution daily l (before meals) Nitroglycer Yes .4mg Place 1 Emiliano sey in 0.4 MG 4-28 tablet Seybold sublingual 16:00: (0.4 mg - SL Tab 15 total) Externa under the l tongue every 5 minutes as needed for chest pain 1 to 2 tablets under the tongue at onset of attack. Repeat as needed up to 3 times. If not relieved CALL 911. Lancets Yes by does Julisa does not 4-28 not apply Seybol d apply Misc 16:00: route - 15 Externa l Blood 0 Yes 1{devic 1 device Kelse y Glucose 4-28 e} by does Seybold Monitoring 16:00: not apply - Suppl does 15 route Externa not apply l Kit Acetaminoph 0 Yes 650mg Q.25D Take 650 Julisa en 3-30 mg by Seybold (TYLENOL) 08:40: mouth - 325 MG oral 35 every 6 Exter na Tablet hours as l tablet needed for pain Aspirin 81 0 Yes 81mg Take 81 mg K elsey MG oral 3-30 by mouth Seybold Tablet 08:40: daily - Delayed 35 Externa Response l Insulin 0 Yes 15U Inject 15 Kelse y Aspart 100 3-30 units into Sey bold UNIT/ML 08:40: the skin 3 - injection 35 times Externa Solution daily l (before meals) Nitroglycer Yes .4mg Place 0.4 K elsey in 0.4 MG 3-30 mg under Seybol d sublingual 08:40: the tongue - SL Tab 35 every 5 Externa minutes as l needed for chest pain 1 to 2 tablets under the tongue at onset of attack. Repeat as needed up to 3 times. If not relieved CALL 911. Tamsulosin 0 Yes .4mg Take 0.4 Emiliano sey HCl 0.4 MG 3-30 mg by Seybold oral 08:40: mouth - Capsule 35 every Externa night at l bedtime Lancets 0 Yes by does Julisa does not 3-30 not apply Seybol d apply Misc 08:40: route - 35 Externa l Blood 0 Yes 1{devic 1 device Kelse y Glucose 3-30 e} by does Seybold Monitoring 08:40: not apply - Suppl does 35 route Externa not apply l Kit Tramadol 0 Yes 50mg Q.25D Take 1 Julisa HCl 3-30 tablet (50 Seybold (ULTRAM) 50 00:00: mg total) - MG oral 00 by mouth Externa Tablet every 6 l hours as needed for pain Driving Precaution s / No alcohol / No operating machinery Tramadol 2022-0 2022- No 50mg Q.25D Take 1 Kelse y HCl 3-30 04-28 tablet (50 Seybold (ULTRAM) 50 00:00: 00:00 mg total) - MG oral 00 :00 by mouth Externa Tablet every 6 l hours as needed for pain Driving Precaution s / No alcohol / No operating machinery Insulin 2022- No 30U Inject 30 Jojo ey Detemir 100 3-29 03-29 units into S eybold UNIT/ML 08:35: 00:00 the skin - subcutaneou 07 :00 every Externa s Solution morning l Atorvastati Yes [id number] 40mg Take 1 Julisa n Calcium 3-29 3 tablet (40 Seyb old 40 MG oral 00:00: mg total) - Tablet 00 by mouth Externa daily l Insulin 0 Yes [id number] 30 units Julisa Glargine 3-29 3 sc every Seybold (Basaglar 00:00: day - KwikPen) 00 Externa 100 UNIT/ML l subcutaneou s Solution Pen-injecto r Empaglifloz 0 Yes [id number] 1{tbl} Take 1 Julisa in 12-24 tablet by Seybold (Jardiance) 00:00: mouth - 10 MG oral 00 daily Externa Tablet l Atorvastati 0 Yes [id number] 40mg Take 1 Julisa n Calcium 3-29 3 tablet (40 Seyb old 40 MG oral 00:00: mg total) - Tablet 00 by mouth Externa daily l Insulin 0 Yes [id number] 30 units Julisa Glargine 3-29 3 sc every Seybold (Basaglar 00:00: day - KwikPen) 00 Externa 100 UNIT/ML l subcutaneou s Solution Pen-injecto r Empaglifloz 0 Yes [id number] 1{tbl} Take 1 Julisa in 3-29 tablet by Seybold (Jardiance) 00:00: mouth - 10 MG oral 00 daily Externa Tablet l NEEDLE, Yes [id number] BASAGLAR Julisa DISP, 23 G 3-29 3 KWIKPEN Seybol d 23G X 00:00: 100 - 1-1/2" does 00 UNIT/ML SC Ex terna not apply SOPN 15 mL l Misc 30 units sc every day Atorvastati Yes [id number] 40mg Take 1 Julisa n Calcium 3-29 3 tablet (40 Seyb old 40 MG oral 00:00: mg total) - Tablet 00 by mouth Externa daily l Insulin Yes [id number] 30 units Julisa Glargine 3-29 3 sc every Seybold (Basaglar 00:00: day - KwikPen) 00 Externa 100 UNIT/ML l subcutaneou s Solution Pen-injecto r NEEDLE, Yes [id number] BASAGLAR Julisa DISP, 23 G 3-29 3 KWIKPEN Seybol d 23G X 00:00: - " does 00 UNIT/ML SC Ex terna not apply SOPN 15 mL l Misc 30 units sc every day Atorvastati Yes [id number] 40mg Take 1 Julisa n Calcium 3-29 3 tablet (40 Seyb old 40 MG oral 00:00: mg total) - Tablet 00 by mouth Externa daily l Insulin Yes [id number] 30 units Julisa Glargine 3-29 3 sc every Seybold (Basaglar 00:00: day - KwikPen) 00 Externa 100 UNIT/ML l subcutaneou s Solution Pen-injecto r NEEDLE, Yes [id number] BASAGLAR Julisa DISP, 23 G 3-29 3 KWIKPEN Seybol d 23G X 00:00: - " does 00 UNIT/ML SC Ex terna not apply SOPN 15 mL l Misc 30 units sc every day Insulin Yes [id number] 30 units Julisa Glargine 3-29 3 sc every Seybold (Basaglar 00:00: day - KwikPen) 00 Externa 100 UNIT/ML l subcutaneou s Solution Pen-injecto r NEEDLE, Yes [id number] BASAGLAR Julisa DISP, 23 G 3-29 3 KWIKPEN Seybol d 23G X 00:00: - -2" does 00 UNIT/ML SC Ex terna not apply SOPN 15 mL l Misc 30 units sc every day Atorvastati 2022- No [id number] 40mg Take 1 Julisa n Calcium 3-29 05-26 3 tablet (40 Sey bold 40 MG oral 00:00: 00:00 mg total) - Tablet 00 :00 by mouth Externa daily l Empaglifloz 2022-0 2022- No [id number] 1{tbl} Take 1 Julisa in -24 01-28 tablet by Seybold (Jardiance) 00:00: 00:00 mouth - 10 MG oral 00 :00 daily Externa Tablet l Clopidogrel 2022-0 Yes [id number] 75mg Take 1 Julisa Bisulfate 3-28 tablet (75 Seyb old (Plavix) 75 00:00: mg total) - MG oral 00 by mouth Externa Tablet daily l Clopidogrel 2022-0 Yes [id number] 75mg Take 1 Julisa Bisulfate 3-28 tablet (75 Seyb old (Plavix) 75 00:00: mg total) - MG oral 00 by mouth Externa Tablet daily l Clopidogrel 2022-0 Yes [id number] 75mg Take 1 Julisa Bisulfate 3-28 tablet (75 Seyb old (Plavix) 75 00:00: mg total) - MG oral 00 by mouth Externa Tablet daily l Clopidogrel 2022-0 Yes [id number] 75mg Take 1 Julisa Bisulfate 3-28 tablet (75 Seyb old (Plavix) 75 00:00: mg total) - MG oral 00 by mouth Externa Tablet daily l Clopidogrel 2022-0 Yes [id number] 75mg Take 1 Julisa Bisulfate 3-28 tablet (75 Seyb old (Plavix) 75 00:00: mg total) - MG oral 00 by mouth Externa Tablet daily l Atorvastati 2022-0 2022- No [id number] 40mg Take 1 Julisa n Calcium 3-28 12-24 3 tablet (40 Sey bold 40 MG oral 00:00: 00:00 mg total) - Tablet 00 :00 by mouth Externa daily l Acetaminoph 2022-0 Yes 650mg Q.25D Take 650 Julisa en 3-20 mg by Seybold (TYLENOL) 10:53: mouth - 325 MG oral 23 every 6 Exter na Tablet hours as l tablet needed for pain Aspirin 81 2022-0 Yes 81mg Take 81 mg K elsey MG oral 3-20 by mouth Seybold Tablet 10:53: daily - Delayed 23 Externa Response l Insulin 2023-0 Yes 15U Inject 15 Kelse y Aspart 100 3-20 units into Shailesh fajardo UNIT/ML 10:53: the skin 3 - injection 23 times Externa Solution daily l (before meals) Nitroglycer [address] 0.4 K elsey in 0.4 MG 3-20 mg under Seybol d sublingual 10:53: the tongue - SL Tab 23 every 5 Externa minutes as l needed for chest pain 1 to 2 tablets under the tongue at onset of attack. Repeat as needed up to 3 times. If not relieved CALL 911. Tamsulosin 0 Yes .4mg Take 0.4 Emiliano sey HCl 0.4 MG 3-20 mg by Seybold oral 10:53: mouth - Capsule 23 every Externa night at l bedtime Lancets Yes by kirt Egan does not 3-20 not apply Seybol d apply Misc 10:53: route - 23 Externa l Blood 0 Yes 1{devic 1 device Kelse y Glucose 3-20 e} by does Seybold Monitoring 10:53: not apply - Suppl does 23 route Externa not apply l Kit Valsartan-h 0 Yes 1{tbl} Take 1 Ke lsey ydroCHLOROt 3-20 tablet by Sey bold hiazide 00:00: mouth - 80-12.5 MG 00 daily Externa oral Tablet l Valsartan-h 2022-0 Yes 1{tbl} Take 1 Ke lsey ydroCHLOROt 3-20 tablet by Sey bold hiazide 00:00: mouth - 80-12.5 MG 00 daily Externa oral Tablet l Valsartan-h 2022-0 Yes 1{tbl} Take 1 Ke lsey ydroCHLOROt 3-20 tablet by Sey bold hiazide 00:00: mouth - 80-12.5 MG 00 daily Externa oral Tablet l Valsartan-h 2022-0 Yes 1{tbl} Take 1 Ke lsey ydroCHLOROt 3-20 tablet by Sey bold hiazide 00:00: mouth - 80-12.5 MG 00 daily Externa oral Tablet l Valsartan-h 2022-0 Yes 1{tbl} Take 1 Ke lsey ydroCHLOROt 3-20 tablet by Sey bold hiazide 00:00: mouth - 80-12.5 MG 00 daily Externa oral Tablet l Metoprolol 0 2022- No 25mg Take 1 Jojo ey Succinate 12-15 tablet (25 Sey bold 25 MG oral 00:00: 00:00 mg total) - TABLET SR 00 :00 by mouth 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 a 24 HR daily l Empaglifloz 0 2022- No 1{tbl} Take 1 K elsey in 12-15 tablet by Caitlin (Jardiance) 00:00: 00:00 mouth - 10 MG oral 00 :00 daily Externa Tablet l Acetaminoph Yes 650mg Q.25D Take 650 Julisa en 3-01 mg by Seybold (TYLENOL) 13:13: mouth - 325 MG oral 42 every 6 Exter na Tablet hours as l tablet needed for pain Aspirin 81 0 Yes 81mg Take 81 mg K elsey MG oral 3- by mouth Seybold Tablet 13:13: daily - Delayed 42 Externa Response l Insulin Yes 15U Inject 15 Kelse y Aspart 100 3-01 units into Sey bold UNIT/ML 13:13: the skin 3 - injection 42 times Externa Solution daily l (before meals) Insulin Yes 30U Inject 30 Kelse y Detemir 100 3-01 units into Se ybold UNIT/ML 13:13: the skin - subcutaneou 42 every Externa s Solution morning l Nitroglycer Yes .4mg Place 0.4 K elsey in 0.4 MG 3-01 mg under Seybol d sublingual 13:13: the tongue - SL Tab 42 every 5 Externa minutes as l needed for chest pain 1 to 2 tablets under the tongue at onset of attack. Repeat as needed up to 3 times. If not relieved CALL 911. Tamsulosin 0 Yes .4mg Take 0.4 Emiliano sey HCl 0.4 MG 3-01 mg by Seybold oral 13:13: mouth - Capsule 42 every Externa night at l bedtime Lancets 0 Yes by does Julisa does not 3 not apply Seybol d apply Misc 13:13: route - 42 Externa l Blood Yes 1{devic 1 device Kelse y Glucose 3-01 e} by does Seybold Monitoring 13:13: not apply - Suppl does 42 route Externa not apply l Kit Clopidogrel Yes 75mg Take 1 Jojo ey Bisulfate 2-23 tablet (75 Seyb old (Plavix) 75 00:00: mg total) - MG oral 00 by mouth Externa Tablet daily l Atorvastati Yes 40mg Take 1 Jojo ey n Calcium 2-23 tablet (40 Seyb old 40 MG oral 00:00: mg total) - Tablet 00 by mouth Externa daily l Metoprolol Yes 25mg Take 1 Kelse y Tartrate 2-23 tablet (25 Seybo ld (LOPRESSOR) 00:00: mg total) - 25 MG oral 00 by mouth 2 Ext candido Tablet times l daily Ticagrelor 0 2022- No Take by Emiliano sey 90 MG oral 2-20 02-20 mouth Seybold Tablet 11:39: 00:00 - 38 :00 Externa l Acetaminoph Yes 650mg Q.25D Take 650 Julisa en 2-20 mg by Seybold (TYLENOL) 11:31: mouth - 325 MG oral 04 every 6 Exter na Tablet hours as l tablet needed for pain Aspirin 81 0 Yes 81mg Take 81 mg K elsey MG oral 2-20 by mouth Seybold Tablet 11:31: daily - Delayed 04 Externa Response l Insulin 0 Yes 15U Inject 15 Kelse y Aspart 100 2-20 units into Sey bold UNIT/ML 11:31: the skin 3 - injection 04 times Externa Solution daily l (before meals) Insulin 0 Yes 30U Inject 30 Kelse y Detemir 100 2-20 units into Se ybold UNIT/ML 11:31: the skin - subcutaneou 04 every Externa s Solution morning l Nitroglycer [address] 0.4 K elsey in 0.4 MG 2-20 mg under Seybol d sublingual 11:31: the tongue - SL Tab 04 every 5 Externa minutes as l needed for chest pain 1 to 2 tablets under the tongue at onset of attack. Repeat as needed up to 3 times. If not relieved CALL 911. Tamsulosin Yes .4mg Take 0.4 Emiliano sey HCl 0.4 MG 2-20 mg by Seybold oral 11:31: mouth - Capsule 04 every Externa night at l bedtime Lancets 2022-0 Yes by does Julisa does not 2-20 not apply Seybol d apply Misc 11:31: route - 04 Externa l Blood 2022-0 Yes 1{devic 1 device Kelse y Glucose 2-20 e} by does Seybold Monitoring 11:31: not apply - Suppl does 04 route Externa not apply l Kit Ticagrelor 2022-0 Yes [id number] 1{each} Take 1 Julisa 90 MG oral 2-20 each by Seybol d Tablet 00:00: mouth 2 - 00 times Externa daily l Atorvastati 2022-0 Yes [id number] TAKE 1 Julisa n Calcium 2-13 3 TABLET BY Aggie ld 40 MG oral 00:00: MOUTH - Tablet 00 NIGHTLY Externa FOR 30 l DAYS Accu-Chek 3-0 Yes [id number] USE Julisa Guide in 11-06 3 DIRECTED Seybold vitro Strip 00:00: TO CHECK - 00 BLOOD Externa SUGAR 4 l TIMES A DAY BEFORE MEALS AND NIGHTLY ReliOn 3-0 Yes [id number] USE Ke lsey Insulin 11-06 3 DIRECTED Seybold Syringe 31G 00:00: FOUR TIMES - X 15/64" 00 A DAY Externa 0.3 ML does BEFORE l not apply MEALS AND Misc NIGHTLY Blood 2022-0 Yes [id number] See Admin Julisa Glucose 11-06 3 Instructio Morrisol d Monitoring 00:00: ns - Suppl 00 Externa (Accu-Chek l Guide Me) w/Device does not apply Kit Accu-Chek 3-0 Yes [id number] USE Julisa Guide in 11-06 3 DIRECTED Seybold vitro Strip 00:00: TO CHECK - 00 BLOOD Externa SUGAR 4 l TIMES A DAY BEFORE MEALS AND NIGHTLY ReliOn 2023-0 Yes [id number] USE Ke lsey Insulin 11-06 3 DIRECTED Seybold Syringe 31G 00:00: FOUR TIMES - X 15/64" 00 A DAY Externa 0.3 ML does BEFORE l not apply MEALS AND Misc NIGHTLY Blood 2023-0 Yes [id number] See Admin [facility] Glucose 11-06 3 Instructio Seybol d Monitoring 00:00: ns - Suppl 00 Externa (Accu-Chek l Guide Me) w/Device does not apply Kit Accu-Chek 2023-0 Yes [id number] USE Julisa Guide in 11-06 3 DIRECTED Seybold vitro Strip 00:00: TO CHECK - 00 BLOOD Externa SUGAR 4 l TIMES A DAY BEFORE MEALS AND NIGHTLY ReliOn 2023-0 Yes [id number] USE Ke lsey Insulin 11-06 3 DIRECTED Seybold Syringe 31G 00:00: FOUR TIMES - X 15/64" 00 A DAY Externa 0.3 ML does BEFORE l not apply MEALS AND Misc NIGHTLY Blood 2023-0 Yes [id number] See Admin [facility] Glucose 11-06 3 Instructio Seybol d Monitoring 00:00: ns - Suppl 00 Externa (Accu-Chek l Guide Me) w/Device does not apply Kit Accu-Chek 2023-0 Yes [id number] USE Julisa Guide in 11-06 3 DIRECTED Seybold vitro Strip 00:00: TO CHECK - 00 BLOOD Externa SUGAR 4 l TIMES A DAY BEFORE MEALS AND NIGHTLY ReliOn 2023-0 Yes [id number] USE Ke lsey Insulin 11-06 3 DIRECTED Seybold Syringe 31G 00:00: FOUR TIMES - X 15/64" 00 A DAY Externa 0.3 ML does BEFORE l not apply MEALS AND Misc NIGHTLY Blood 2023-0 Yes [id number] See Admin [facility] Glucose 11-06 3 Instructio Seybol d Monitoring 00:00: ns - Suppl 00 Externa (Accu-Chek l Guide Me) w/Device does not apply Kit Accu-Chek 2023-0 Yes [id number] USE Julisa Guide in 11-06 3 DIRECTED Seybold vitro Strip 00:00: TO CHECK - 00 BLOOD Externa SUGAR 4 l TIMES A DAY BEFORE MEALS AND NIGHTLY ReliOn 2023-0 Yes [id number] USE Ke lsey Insulin 11-06 3 DIRECTED Seybold Syringe 31G 00:00: FOUR TIMES - X 15/64" 00 A DAY Externa 0.3 ML does BEFORE l not apply MEALS AND Misc NIGHTLY Blood 2023-0 Yes [id number] See Admin [facility] Glucose 11-06 3 Instructio Seybol d Monitoring 00:00: ns - Suppl 00 Externa (Accu-Chek l Guide Me) w/Device does not apply Kit Accu-Chek 3-0 Yes [id number] USE Julisa Guide in 11-06 3 DIRECTED Seybold vitro Strip 00:00: TO CHECK - 00 BLOOD Externa SUGAR 4 l TIMES A DAY BEFORE MEALS AND NIGHTLY ReliOn 2023-0 Yes [id number] USE Ke lsey Insulin 11-06 3 DIRECTED Seybold Syringe 31G 00:00: FOUR TIMES - X 15/64" 00 A DAY Externa 0.3 ML does BEFORE l not apply MEALS AND Misc NIGHTLY Blood 2023-0 Yes [id number] See Admin [facility] Glucose 11-06 3 Instructio Seybol d Monitoring 00:00: ns - Suppl 00 Externa (Accu-Chek l Guide Me) w/Device does not apply Kit Accu-Chek 3-0 Yes [id number] USE Julisa Guide in 11-06 3 DIRECTED Seybold vitro Strip 00:00: TO CHECK - 00 BLOOD Externa SUGAR 4 l TIMES A DAY BEFORE MEALS AND NIGHTLY ReliOn 2023-0 Yes [id number] USE Ke lsey Insulin 11-06 3 DIRECTED Seybold Syringe 31G 00:00: FOUR TIMES - X 15/64" 00 A DAY Externa 0.3 ML does BEFORE l not apply MEALS AND Misc NIGHTLY Blood 2023-0 Yes [id number] See Admin [facility] Glucose 11-06 3 Instructio Seybol d Monitoring 00:00: ns - Suppl 00 Externa (Accu-Chek l Guide Me) w/Device does not apply Kit Vital Signs Vital Name Observation Time Observation Value Comments Source Systolic blood 2023-02-20 21:26:00 118 mm[Hg] Julisa Headleyybold - pressure External Diastolic blood 2023-02-20 21:26:00 80 mm[Hg] Dejan Caceresold - pressure External Heart rate 2023-02-20 21:26:00 86 /min Julisa Emery eybold - External Body temperature 2023-02-20 21:26:00 36.78 Dawna Jojo ey Seybold - External Respiratory rate 2023-02-20 21:26:00 20 /min Jojo marks Seybold - External Body height 2023-02-20 21:26:00 167.6 cm Julisa Emery eybold - External Body weight 2023-02-20 21:26:00 93.622 kg Julisa S eybold - External BMI 2023-02-20 21:26:00 33.31 kg/m2 Julisa S eybold - External Oxygen saturation in 2023-02-20 21:26:00 98 /min Julisa Seybold - Arterial blood by External Pulse oximetry Systolic blood 2023-01-23 20:58:00 124 mm[Hg] Julisa Seybold - pressure External Diastolic blood 2023-01-23 20:58:00 76 mm[Hg] Emilianose y Seybold - pressure External Heart rate 2023-01-23 20:58:00 74 /min Julisa S eybold - External Body temperature 2023-01-23 20:58:00 36.61 Dawna Jojo ey Seybold - External Respiratory rate 2023-01-23 20:58:00 14 /min Jojo ey Seybold - External Body height 2023-01-23 20:58:00 167.6 cm Julisa Emery eybold - External Body weight 2023-01-23 20:58:00 86.183 kg Julisa Emery eybold - External BMI 2023-01-23 20:58:00 30.67 kg/m2 Julisa Emery eybold - External Oxygen saturation in 2023-01-23 20:58:00 97 /min Julisa Seybold - Arterial blood by External Pulse oximetry Systolic blood 2022-12-25 13:37:00 120 mm[Hg] Julisa Seybold - pressure External Diastolic blood 2022-12-25 13:37:00 75 mm[Hg] Dejan y Seybold - pressure External Heart rate 2022-12-25 13:37:00 85 /min Julisa S eybold - External Respiratory rate 2022-12-25 13:37:00 16 /min Jojo ey Seybold - External Body height 2022-12-25 13:37:00 167.6 cm Julisa S eybold - External Body weight 2022-12-25 13:37:00 84.823 kg Julisa S eybold - External BMI 2022-12-25 13:37:00 30.18 kg/m2 Julisa S eybold - External Systolic blood 2022-12-24 13:23:00 126 mm[Hg] Julisa Seybold - pressure External Diastolic blood 2022-12-24 13:23:00 83 mm[Hg] Kelse y Seybold - pressure External Heart rate 2022-12-24 13:23:00 86 /min Julisa S eybold - External Body temperature 2022-12-24 13:23:00 36.56 Dawna Jojo ey Seybold - External Respiratory rate 2022-12-24 13:23:00 14 /min Jojo ey Seybold - External Body height 2022-12-24 13:23:00 167.6 cm Julisa S eybold - External Body weight 2022-12-24 13:23:00 85.73 kg Julisa S eybold - External BMI 2022-12-24 13:23:00 30.51 kg/m2 Julisa S eybold - External Oxygen saturation in 2022-12-24 13:23:00 99 /min Julisa Seybold - Arterial blood by External Pulse oximetry Systolic blood 2022-11-26 19:11:00 132 mm[Hg] Julisa Seybold - pressure External Diastolic blood 2022-11-26 19:11:00 76 mm[Hg] Dejan y Seybold - pressure External Heart rate 2022-11-26 19:11:00 69 /min Julisa Emery eybold - External Body temperature 2022-11-26 19:11:00 37.11 Dawna Jojo ey Seybold - External Respiratory rate 2022-11-26 19:11:00 14 /min Jojo ey Seybold - External Body height 2022-11-26 19:11:00 167.6 cm Julisa S eybold - External Body weight 2022-11-26 19:11:00 88.451 kg Julisa S eybold - External BMI 2022-11-26 19:11:00 31.47 kg/m2 Julisa S eybold - External Oxygen saturation in 2022-11-26 19:11:00 98 /min Julisa Seybold - Arterial blood by External Pulse oximetry Systolic blood 2022-11-17 17:29:00 126 mm[Hg] Julisa Seybold - pressure External Diastolic blood 2022-11-17 17:29:00 74 mm[Hg] Dejan Tucker - pressure External Heart rate 2022-11-17 17:29:00 81 /min Julisa marksbojerry - External Body temperature 2022-11-17 17:29:00 35.94 Dawna Jojo Tucker - External Respiratory rate 2022-11-17 17:29:00 22 /min Jojo marks Seybjhoana - External Body height 2022-11-17 17:29:00 167.6 cm Julisa marksbojerry - External Body weight 2022-11-17 17:29:00 83.28 kg Jluisa marksbojerry - External BMI 2022-11-17 17:29:00 29.63 kg/m2 Julisa marksbojerry - External Oxygen saturation in 2022-11-17 17:29:00 98 /min Julisa Tucker - Arterial blood by External Pulse oximetry WEIGHT 2022-11-10 05:19:00 78.291 kg WEIGHT 2022-11-09 02:47:00 79.425 kg WEIGHT 2022-11-08 03:13:00 80.151 kg WEIGHT 2022-11-06 05:00:00 79.379 kg WEIGHT 2022-11-05 05:51:00 78.019 kg WEIGHT 2022-11-04 03:00:00 78.1 kg WEIGHT 2022-11-03 03:00:00 77 kg HEIGHT 2022-11-02 20:00:00 167.6 cm HEIGHT 2022-11-02 14:00:00 167.6 cm WEIGHT 2022-11-02 14:00:00 86.183 kg WEIGHT 2022-11-10 05:19:00 78.291 kg WEIGHT 2022-11-09 02:47:00 79.425 kg WEIGHT 2022-11-08 03:13:00 80.151 kg WEIGHT 2022-11-06 05:00:00 79.379 kg WEIGHT 2022-11-05 05:51:00 78.019 kg WEIGHT 2022-11-04 03:00:00 78.1 kg WEIGHT 2022-11-03 03:00:00 77 kg HEIGHT 2022-11-02 20:00:00 167.6 cm HEIGHT 2022-11-02 14:00:00 167.6 cm WEIGHT 2022-11-02 14:00:00 86.183 kg Procedures Procedure Date / Time Performed Performing Clinician Sour e LUMBAR SPINE 2 VIEWS 2022-12-25 14:29:11 Herbert Nayakold - External SHOULDER 3 VIEW RIGHT 2022-12-25 14:28:35 Herbret Nayak - (ORTHO) External SCAPULA RIGHT 2022-12-25 14:27:00 Herbert Nayak Seladan old - External Encounters Start End Encounter Admission Attending Care Care Encounter Source Date/Time Date/Time Type Type Clinicians Facility Department ID 2023-05-13 2023-05-13 Outpatient JULISA ESCALERA [id number] Julisa 15:20:00 15:20:00 CLYDE Seybo ld 2023-04-24 2023-04-24 Outpatient CHARISMA DELAROSA [id number] Julisa 16:30:00 16:30:00 Seybol d 2023-03-27 2023-03-27 Outpatient JULISA ASHLEY [id number] Julisa 16:00:00 16:00:00 OTTO Seybol d 2023-03-23 2023-03-23 Outpatient JULISA DICKEY [id number] Julisa 15:30:00 15:30:00 ADARSH Seybol d 2023-03-23 2023-03-23 Outpatient CHANI RAJPUT [id number] Julisa 10:30:00 10:30:00 Seybol d 2023-03-23 2023-03-23 Outpatient LAB90 JULISA EGAN [id number] Julisa 09:55:00 09:55:00 Seybol d 2023-03-23 2023-03-23 Outpatient JULISA GARCIA [id number] Julisa 00:00:00 00:00:00 DAVID Seybol d 2023-03-16 2023-03-16 Outpatient JULISA ESCALERA [id number] Julisa 16:00:00 16:00:00 CLYDE Seybo ld 2023-03-16 2023-03-16 Outpatient VF51 JULISA EGAN [id number] Julisa 15:00:00 15:00:00 Seybol d 2023-03-12 2023-03-12 Outpatient CHARISMA DELAROSA JULISA EGAN [id number] Julisa 16:30:00 16:30:00 Seybol d 2023-03-03 2023-03-03 Outpatient JULISA MORA [id number] Julisa 10:30:00 10:30:00 QUOCDAI Seybol d 2023-03-02 2023-03-02 Outpatient PREJULISA MORA [id number] Julisa 00:00:00 00:00:00 OTTO Seybol d 2023-02-27 2023-02-27 Outpatient JULISA TRIPP [id number] Julisa 14:00:00 14:00:00 MARIELY Seybol d 2023-02-20 2023-02-20 Outpatient PREZAJULISA Emery [id number] Julisa 16:30:00 16:30:00 OTTO Seybol d 2023-02-20 2023-02-20 Outpatient JULISA DELGADO [id number] Julisa 09:50:00 09:50:00 TOMMY Seybol d 2023-02-13 2023-02-13 Outpatient DORI VIGIL [id number] Julisa 16:30:00 16:30:00 Seybol d 2023-02-10 2023-02-10 Outpatient JULISA ESCALERA [id number] Julisa 15:40:00 15:40:00 CLYDE Seybo ld 2023-02-10 2023-02-10 Outpatient TOMOGRAPHYJULISA [id number] Julisa 15:40:00 15:40:00 MP Seybol d 2023-01-27 2023-01-27 Outpatient PREZAJULISA Emery [id number] Julisa 00:00:00 00:00:00 OTTO Seybol d 2023-01-26 2023-01-26 Outpatient JULISA MORA [id number] Julisa 14:45:00 14:45:00 QUOCDAI Seybol d 2023-01-23 2023-01-23 Outpatient JULISA ASHLEY [id number] Julisa 16:00:00 16:00:00 OTTO Seybol d 2023-01-20 2023-01-20 Outpatient JULISA MORROW [id number] Julisa 08:20:00 08:20:00 GIANCARLO Seybol d 2023-01-05 2023-01-05 Outpatient DELGADOJULISA CHRISTY [id number] Julisa 13:30:00 13:30:00 TOMMY Seybol d 2022-12-25 2022-12-25 Outpatient JULISA EGAN [id number] Julisa 09:25:00 09:25:00 Seybol d 2022-12-25 2022-12-25 Outpatient JULISA EGAN [id number] Julisa 09:20:00 09:20:00 Seybol d 2022-12-25 2022-12-25 Outpatient JULISA EGAN [id number] Julisa 09:15:00 09:15:00 Seybol d 2022-12-25 2022-12-25 Outpatient JULISA NAYAK [id number] Julisa 09:00:00 09:00:00 EHRBERT Seybol d 2022-12-24 2022-12-24 Outpatient JULISA ASHLEY [id number] Julisa 08:30:00 08:30:00 OTTO Seybol d 2022-12-23 2022-12-23 Outpatient JULISA ASHLEY [id number] Julisa 00:00:00 00:00:00 OTTO Seybol d 2022-12-15 2022-12-15 Outpatient JULISA MORA [id number] Julisa 11:00:00 11:00:00 QUOCDAI Seybol d 2022-12-15 2022-12-15 Outpatient JULISA MORA [id number] Julisa 00:00:00 00:00:00 QUOCDAI Seybol d 2022-12-08 2022-12-08 Outpatient JULISA GOMEZ [id number] Julisa 00:00:00 00:00:00 JINU Seybol d 2022-12-02 2022-12-02 Outpatient JULISA GOMEZ [id number] Julisa 00:00:00 00:00:00 JINU Seybol d 2022-12-01 2022-12-01 Outpatient JULISA EGAN [id number] Julisa 10:30:00 10:30:00 Seybol d 2022-12-01 2022-12-01 Outpatient JULISA EGAN [id number] Julisa 09:30:00 09:30:00 Seybol d 2022-12-01 2022-12-01 Outpatient JULISA EGAN [id number] Julisa 09:00:00 09:00:00 Seybol d 2022-12-01 2022-12-01 Outpatient JULISA EGAN [id number] Julisa 08:00:00 08:00:00 Seybol d 2022-11-28 2022-11-28 Outpatient JULISA ASHLEY [id number] Julisa 00:00:00 00:00:00 OTTO Seybol d 2022-11-27 2022-11-27 Outpatient JULISA MARSHALL [id number] Julisa 00:00:00 00:00:00 TRIANDA Seybol d 2022-11-26 2022-11-26 Outpatient JULISA ASHLEY [id number] Julisa 13:30:00 13:30:00 OTTO Seybol d 2022-11-26 2022-11-26 Outpatient JULISA MARSHALL [id number] Julisa 00:00:00 00:00:00 TRIANDA Seybol d 2022-11-20 2022-11-20 Outpatient TRED45 JULISA EGAN [id number] Julisa 14:00:00 14:00:00 Seybol d 2022-11-20 2022-11-20 Outpatient JULISA GOMEZ [id number] Julisa 11:00:00 11:00:00 JINU Seybol d 2022-11-18 2022-11-18 Outpatient LAB90 JULISA EGAN [id number] Julisa 15:40:00 15:40:00 Seybol d 2022-11-18 2022-11-18 Outpatient LAB90 JULISA EGAN [id number] Julisa 09:35:00 09:35:00 Seybol d 2022-11-17 2022-11-17 Outpatient PREZAS JULISA EGAN [id number] Julisa 11:30:00 11:30:00 OTTO Seybol d 2022-11-11 2022-11-11 Outpatient GABI JULISA EGAN [id number] Julisa 16:00:00 16:00:00 OTTO Seybol d 2022-11-02 2022-11-10 Inpatient ER BANDEALI, [facility] Cardiac [id number] [facility] 14:24:00 13:52:00 SALMAN Cath 2022-11-04 2022-11-04 Outpatient PEREZ VALLE JULISA EGAN [id number] Julisa 00:00:00 00:00:00 Seybol d 2022-11-03 2022-11-03 Outpatient ASHUTOSHJULISA [id number] Julisa 00:00:00 00:00:00 KENIA Seybol d Results Test Description Test Time Test Comments Results Result Comments Source POCT-GLUCOSE METER 2022-11-10 12:19:41 Test Item Value Reference Range Interpretation Comme nts POC-GLUCOSE METER (BEAKER) 148 mg/dL 70-110 H : [facility] [address] [facility] (test code = 1538) [facility], [address]: Change Management Analyst/Techni ara ID = [id number] for Keeley Bell POCT-GLUCOSE [id number] 06:53:45 Test Item Value Reference Range Interpretation Comments POC-GLUCOSE METER 168 mg/dL 70-110 H : TESTED A T [facility] [address] (BEAKER) (test code = [facility] Marvin [facility], 1538) [address]: Change Management Analyst/Techni ara ID = [id number] for Divya Torres BASIC METABOLIC [id number] 04:47:58 Test Item Value Reference Range Interpretation Comments SODIUM (BEAKER) 139 meq/L 136-145 (test code = 381) POTASSIUM 4.1 meq/L 3.5-5.1 (BEAKER) (test code = 379) CHLORIDE (BEAKER) 107 meq/L 98-107 (test code = 382) CO2 (BEAKER) 24 meq/L 22-29 (test code = 355) BLOOD UREA 20 mg/dL 7-21 NITROGEN (BEAKER) (test code = 354) CREATININE 1.49 mg/dL 0.57-1.25 H (BEAKER) (test code = 358) GLUCOSE RANDOM 175 mg/dL 70-105 H (BEAKER) (test code = 652) CALCIUM (BEAKER) 9.2 mg/dL 8.4-10.2 (test code = 697) EGFR (BEAKER) 55 Interpretatio n of eGFR (test code = mL/min/1.73 values Stage De scription 1092) sq m Result G1 Justine l or high >=90 G2 Mildly decreased 60-89 G3a Mildl y to moderately 45-5 9 G3b Moderately to s everely 30-44 G4 Severl y decreased 15-29 G5 Kidney failure <15Reported eGF R is based on the CKD-EPI 2020 equation that d oes not use a race coefficientEsti mated GFR is not as accur ate as Creatinine Judy emma in predicting glom erular filtration rate . Estimated GFR is not appl icable for dialysis patien ts Change Management Analyst ID - PIDENIS [id number] 04:47:58 Test Item Value Reference Range Interpretation Comments MAGNESIUM (BEAKER) (test code = 1.7 mg/dL 1.6-2.6 627) Change Management Analyst ID - PIDENIS LCBC (HEMOGRAM ONLY)2022-11-10 04:15:28 Test Item Value Reference Range Interpretation Comments WHITE BLOOD CELL COUNT (BEAKER) 5.5 K/ L 3.5-10.5 (test code = 775) RED BLOOD CELL COUNT (BEAKER) 4.73 M/ L 4.63-6.08 (test code = 761) HEMOGLOBIN (BEAKER) (test code = 14.1 GM/DL 13.7-17.5 410) HEMATOCRIT (BEAKER) (test code = 41.6 % 40.1-51.0 411) MEAN CORPUSCULAR VOLUME (BEAKER) 88 fL 79-92 (test code = 753) MEAN CORPUSCULAR HEMOGLOBIN 29.8 pg 25.7-32.2 (BEAKER) (test code = 751) MEAN CORPUSCULAR HEMOGLOBIN CONC 33.9 GM/DL 32.3-36.5 (BEAKER) (test code = 752) RED CELL DISTRIBUTION WIDTH 12.7 % 11.6-14.4 (BEAKER) (test code = 412) PLATELET COUNT (BEAKER) (test 190 K/CU MM 150-450 code = 756) MEAN PLATELET VOLUME ([facility]) 10.7 fL 9.4-12.4 (test code = 754) NUCLEATED RED BLOOD CELLS 0 /100 WBC 0-0 ([facility]) (test code = 413) POCT-GLUCOSE [id number] 00:17:13 Test Item Value Reference Range Interpretation Comments POC-GLUCOSE METER 151 mg/dL 70-110 H : TESTED A T [facility] [address] ([facility]) (test code = [facility], 153) [address]: Change Management Analyst/Techni ara ID = [id number] for Divya Torres HIGH SENSITIVITY TROPONIN [id number] 18:30:23 Test Item Value Reference Range Interpretation Comments HIGH SENSITIVITY TROPONIN I (test 1405 pg/ml <=35 HH code = 6182899) Change Management Analyst ID - PIAYA LThe MANAGER SHIP STAT High Sensitivity Troponin-I results should be used in conjunction with other diagnostic information such as ECG, clinical observations and information, and patient symptoms to aid in the diagnosis of ND.POCT-GLUCOSE [id number] 16:34:32 Test Item Value Reference Range Interpretation Comments POC-GLUCOSE METER 76 mg/dL 70-110 : Notified RN/MD: TESTED ([facility]) (test code = AT [facility] [address] [facility] 1538) [facility], [facility] 30: Change Management Analyst/Techni ara ID = [id number] for Altman esus, Mesick POCT-GLUCOSE [id number] 11:50:11 Test Item Value Reference Range Interpretation Comments POC-GLUCOSE METER 214 mg/dL 70-110 H : TESTED A T [facility] [address] ([facility]) (test code = [facility], 153) [address]: Change Management Analyst/Techni ara ID = [id number] for Mays, Mesick POCT-GLUCOSE [id number] 07:25:51 Test Item Value Reference Range Interpretation Comments POC-GLUCOSE METER 173 mg/dL 70-110 H : TESTED A T [facility] [address] ([facility]) (test code = [facility], 153) [address]: Change Management Analyst/Techni ara ID = [id number] for Dianna Davis BASIC METABOLIC [id number] 05:20:21 Test Item Value Reference Range Interpretation Comments SODIUM (BEAKER) 137 meq/L 136-145 (test code = 381) POTASSIUM 4.0 meq/L 3.5-5.1 (BEAKER) (test code = 379) CHLORIDE (BEAKER) 107 meq/L 98-107 (test code = 382) CO2 (BEAKER) 22 meq/L 22-29 (test code = 355) BLOOD UREA 21 mg/dL 7-21 NITROGEN (BEAKER) (test code = 354) CREATININE 1.36 mg/dL 0.57-1.25 H (BEAKER) (test code = 358) GLUCOSE RANDOM 166 mg/dL 70-105 H (BEAKER) (test code = 652) CALCIUM (BEAKER) 9.2 mg/dL 8.4-10.2 (test code = 697) EGFR (BEAKER) 61 Interpretatio n of eGFR (test code = mL/min/1.73 values Stage De scription 1092) sq m Result G1 Justine l or high >=90 G2 Mildly decreased 60-89 G3a Mildl y to moderately 45-5 9 G3b Moderately to s everely 30-44 G4 Severl y decreased 15-29 G5 Kidney failure <15Reported eGF R is based on the CKD-EPI 2020 equation that d oes not use a race coefficientEsti mated GFR is not as accur ate as Creatinine Judy carter in predicting glom erular filtration rate . Estimated GFR is not appl icable for dialysis patien ts Change Management Analyst ID - PIDENIS [id number] 05:20:21 Test Item Value Reference Range Interpretation Comments MAGNESIUM (BEAKER) (test code = 1.7 mg/dL 1.6-2.6 627) Change Management Analyst ID - PIDENIS LCBC (HEMOGRAM ONLY)2022-11-09 04:10:54 Test Item Value Reference Range Interpretation Comments WHITE BLOOD CELL COUNT (BEAKER) 5.2 K/ L 3.5-10.5 (test code = 775) RED BLOOD CELL COUNT (BEAKER) 4.96 M/ L 4.63-6.08 (test code = 761) HEMOGLOBIN (BEAKER) (test code = 14.6 GM/DL 13.7-17.5 410) HEMATOCRIT (BEAKER) (test code = 43.5 % 40.1-51.0 411) MEAN CORPUSCULAR VOLUME (BEAKER) 88 fL 79-92 (test code = 753) MEAN CORPUSCULAR HEMOGLOBIN 29.4 pg 25.7-32.2 (BEAKER) (test code = 751) MEAN CORPUSCULAR HEMOGLOBIN CONC 33.6 GM/DL 32.3-36.5 (BEAKER) (test code = 752) RED CELL DISTRIBUTION WIDTH 12.8 % 11.6-14.4 (BEAKER) (test code = 412) PLATELET COUNT (BEAKER) (test 191 K/CU MM 150-450 code = 756) MEAN PLATELET VOLUME (BEAKER) 10.8 fL 9.4-12.4 (test code = 754) NUCLEATED RED BLOOD CELLS 0 /100 WBC 0-0 (BEAKER) (test code = 413) POCT-GLUCOSE [id number] 20:55:11 Test Item Value Reference Range Interpretation Comments POC-GLUCOSE METER 192 mg/dL 70-110 H : TESTED A T [facility] [address] ([facility]) (test code = [facility], [facility]) [address]: Change Management Analyst/Techni ara ID = [id number] for Wh sultana, Jeanita POCT-GLUCOSE [id number] 17:29:28 Test Item Value Reference Range Interpretation Comments POC-GLUCOSE METER 137 mg/dL 70-110 H : TESTED A T [facility] [address] (BEAKER) (test code = [facility], [facility]) [address]: Change Management Analyst/Techni ara ID = [id number] for BA LTRIP, KRUNAL POCT-GLUCOSE [id number] 12:24:30 Test Item Value Reference Range Interpretation Comments POC-GLUCOSE METER 275 mg/dL 70-110 H : TESTED A T [facility] [address] (BEAKER) (test code = [facility], 153) [address]: Change Management Analyst/Techni ara ID = [id number] for Ge rmany, Mattye POCT-GLUCOSE [id number] 07:06:30 Test Item Value Reference Range Interpretation Comments POC-GLUCOSE METER 198 mg/dL 70-110 H : TESTED A T [facility] [address] (BEAKER) (test code = [facility], 153) [address]: Change Management Analyst/Techni ara ID = [id number] for Wh itmore, Jeanita BASIC METABOLIC [id number] 05:56:16 Test Item Value Reference Range Interpretation Comments SODIUM (BEAKER) 135 meq/L 136-145 L (test code = 381) POTASSIUM 4.1 meq/L 3.5-5.1 (BEAKER) (test code = 379) CHLORIDE (BEAKER) 105 meq/L 98-107 (test code = 382) CO2 (BEAKER) 22 meq/L 22-29 (test code = 355) BLOOD UREA 23 mg/dL 7-21 H NITROGEN (BEAKER) (test code = 354) CREATININE 1.33 mg/dL 0.57-1.25 H (BEAKER) (test code = 358) GLUCOSE RANDOM 194 mg/dL 70-105 H (BEAKER) (test code = 652) CALCIUM (BEAKER) 9.3 mg/dL 8.4-10.2 (test code = 697) EGFR (BEAKER) 63 Interpretatio n of eGFR (test code = mL/min/1.73 values Stage De scription 1092) sq m Result G1 Justine l or high >=90 G2 Mildly decreased 60-89 G3a Mildl y to moderately 45-5 9 G3b Moderately to s everely 30-44 G4 Severl y decreased 15-29 G5 Kidney failure <15Reported eGF R is based on the CKD-EPI 2020 equation that d oes not use a race coefficientEsti mated GFR is not as accur ate as Creatinine Judy carter in predicting glom erular filtration rate . Estimated GFR is not appl icable for dialysis patien ts Change Management Analyst ID - SHY [id number] 05:56:16 Test Item Value Reference Range Interpretation Comments MAGNESIUM (BEAKER) (test code = 1.7 mg/dL 1.6-2.6 627) Change Management Analyst ID - SHY LHIGH SENSITIVITY TROPONIN [id number] 05:49:28 Test Item Value Reference Range Interpretation Comments HIGH SENSITIVITY TROPONIN I (test 3379 pg/ml <=35 HH code = 4196734) Change Management Analyst ID - SHY LThe MANAGER SHIP STAT High Sensitivity Troponin-I results should be used in conjunction with other diagnostic information such as ECG, clinical observations and information, and patient symptoms to aid in the diagnosis of ND.CBC (HEMOGRAM ONLY)2022-11-08 05:03:55 Test Item Value Reference Range Interpretation Comments WHITE BLOOD CELL COUNT (BEAKER) 5.5 K/ L 3.5-10.5 (test code = 775) RED BLOOD CELL COUNT (BEAKER) 5.03 M/ L 4.63-6.08 (test code = 761) HEMOGLOBIN (BEAKER) (test code = 15.0 GM/DL 13.7-17.5 410) HEMATOCRIT (BEAKER) (test code = 43.6 % 40.1-51.0 411) MEAN CORPUSCULAR VOLUME (BEAKER) 87 fL 79-92 (test code = 753) MEAN CORPUSCULAR HEMOGLOBIN 29.8 pg 25.7-32.2 (BEAKER) (test code = 751) MEAN CORPUSCULAR HEMOGLOBIN CONC 34.4 GM/DL 32.3-36.5 (BEAKER) (test code = 752) RED CELL DISTRIBUTION WIDTH 12.9 % 11.6-14.4 (BEAKER) (test code = 412) PLATELET COUNT (BEAKER) (test 185 K/CU MM 150-450 code = 756) MEAN PLATELET VOLUME (BEAKER) 11.0 fL 9.4-12.4 (test code = 754) NUCLEATED RED BLOOD CELLS 0 /100 WBC 0-0 (BEAKER) (test code = 413) POCT-GLUCOSE [id number] 21:06:04 Test Item Value Reference Range Interpretation Comments POC-GLUCOSE METER 197 mg/dL 70-110 H : TESTED A T [facility] [address] (BEAKER) (test code = [facility], 153) [address]: Change Management Analyst/Techni ara ID = [id number] for Jaya weinberg Maria Doloresleonel POCT-GLUCOSE [id number] 16:54:36 Test Item Value Reference Range Interpretation Comments POC-GLUCOSE METER 167 mg/dL 70-110 H : TESTED A T [facility] [address] (BEAKER) (test code = [facility], 153) [address]: Change Management Analyst/Techni ara ID = [id number] for Clark huangkendrick (contract)Adrian POCT-GLUCOSE [id number] 14:26:02 Test Item Value Reference Range Interpretation Comments POC-GLUCOSE METER 274 mg/dL 70-110 H : TESTED A T [facility] 67[address] (BEAKER) (test code = [facility], 1538) [address]: Change Management Analyst/Techni ara ID = [id number] for Keeley Miranda POCT-GLUCOSE [id number] 06:42:45 Test Item Value Reference Range Interpretation Comments POC-GLUCOSE METER 247 mg/dL 70-110 H : TESTED A T [facility] [address] (BEAKER) (test code [facility], = 1538) [address]: Change Management Analyst/Techni ara ID = [id number] for Melanie Epps BASIC METABOLIC [id number] 04:27:05 Test Item Value Reference Range Interpretation Comments SODIUM (BEAKER) 136 meq/L 136-145 (test code = 381) POTASSIUM 3.9 meq/L 3.5-5.1 (BEAKER) (test code = 379) CHLORIDE (BEAKER) 103 meq/L 98-107 (test code = 382) CO2 (BEAKER) 24 meq/L 22-29 (test code = 355) BLOOD UREA 32 mg/dL 7-21 H NITROGEN (BEAKER) (test code = 354) CREATININE 1.56 mg/dL 0.57-1.25 H (BEAKER) (test code = 358) GLUCOSE RANDOM 203 mg/dL 70-105 H (BEAKER) (test code = 652) CALCIUM (BEAKER) 9.7 mg/dL 8.4-10.2 (test code = 697) EGFR (BEAKER) 52 Interpretatio n of eGFR (test code = mL/min/1.73 values Stage De scription 1092) sq m Result G1 Justine l or high >=90 G2 Mildly decreased 60-89 G3a Mildl y to moderately 45-5 9 G3b Moderately to s everely 30-44 G4 Severl y decreased 15-29 G5 Kidney failure <15Reported eGF R is based on the CKD-EPI 2020 equation that d oes not use a race coefficientEsti mated GFR is not as accur ate as Creatinine Judy carter in predicting glom erular filtration rate . Estimated GFR is not appl icable for dialysis patien ts Change Management Analyst ID - [id number] 04:27:05 Test Item Value Reference Range Interpretation Comments MAGNESIUM (BEAKER) (test code = 1.7 mg/dL 1.6-2.6 627) Change Management Analyst ID - [id number] (HEMOGRAM ONLY)2022-11-07 04:01:59 Test Item Value Reference Range Interpretation Comments WHITE BLOOD CELL COUNT (BEAKER) 6.3 K/ L 3.5-10.5 (test code = 775) RED BLOOD CELL COUNT (BEAKER) 5.31 M/ L 4.63-6.08 (test code = 761) HEMOGLOBIN (BEAKER) (test code = 15.5 GM/DL 13.7-17.5 410) HEMATOCRIT (BEAKER) (test code = 45.8 % 40.1-51.0 411) MEAN CORPUSCULAR VOLUME (BEAKER) 86 fL 79-92 (test code = 753) MEAN CORPUSCULAR HEMOGLOBIN 29.2 pg 25.7-32.2 (BEAKER) (test code = 751) MEAN CORPUSCULAR HEMOGLOBIN CONC 33.8 GM/DL 32.3-36.5 (BEAKER) (test code = 752) RED CELL DISTRIBUTION WIDTH 12.9 % 11.6-14.4 (BEAKER) (test code = 412) PLATELET COUNT (BEAKER) (test 190 K/CU MM 150-450 code = 756) MEAN PLATELET VOLUME (BEAKER) 10.8 fL 9.4-12.4 (test code = 754) NUCLEATED RED BLOOD CELLS 0 /100 WBC 0-0 (BEAKER) (test code = 413) POCT-GLUCOSE [id number] 21:02:30 Test Item Value Reference Range Interpretation Comments POC-GLUCOSE METER 306 mg/dL 70-110 H : TESTED A T [facility] 6720 (BEAKER) (test code [facility], = 1538) [id number]: Change Management Analyst/Techni ara ID = [id number] for Melanie Epps POCT-GLUCOSE [id number] 17:25:44 Test Item Value Reference Range Interpretation Comments POC-GLUCOSE METER 173 mg/dL 70-110 H : TESTED A T [facility] 6720 (BEAKER) (test code = [facility], 1538) [id number]: Change Management Analyst/Techni ara ID = [id number] for JAZMÍN BONIFACIOKemi MARGARET POCT-GLUCOSE [id number] 11:42:57 Test Item Value Reference Range Interpretation Comments POC-GLUCOSE METER 324 mg/dL 70-110 H : TESTED A T [facility] 6720 (BEAKER) (test code = [place], 1538) [address]: Change Management Analyst/Techni ara ID = [id number] for MARGARET BELL U/S, RENAL, [id number] 10:53:00Reason for exam:->[facility] : 1965 Sex: MFINAL REPORT TECHNIQUE: Grayscale ultrasound of the kidneys and bladder. INDICATION: CHELSEY. COMPARISON: None. FINDINGS: RIGHT KIDNEY: The right kidney measures 10.6 x 4.6 x 5.3 cm with a cortical thickness of 1.2 cm. No solid mass lesions. No hydronephrosis. Renal artery and vein are patent. The measured echogenic area in the right interpolar kidney is most likely the back wall of a very small cyst. No follow-up imaging is recommended for this finding. LEFT KIDNEY: The left kidneymeasures 11.8 x 5.4 x 4.5 cm with a cortical thickness of 1.3 cm. No solid mass lesions. No hydronephrosis. Renal artery and vein are patent. A left lower pole anechoic renal lesion with posterior acoustic enhancement measures 1.7 cm and is most consistent with a simple renal cyst. No follow-up imaging is recommended for this finding. A measured echogenic focus in the left lower pole is most likely either a vessel or sequestered renal sinus fat. BLADDER: The urinary bladder volume is 7 mL. IMPRESSION: This is a normal renal ultrasound. No hydronephrosis Signed: Jay Hopkins MDReport Verified Date/Time: 11/06/2022 10:53:57 BASIC METABOLIC [id number] 06:52:19 Test Item Value Reference Range Interpretation Comments SODIUM (BEAKER) 136 meq/L 136-145 (test code = 381) POTASSIUM 4.2 meq/L 3.5-5.1 (BEAKER) (test code = 379) CHLORIDE (BEAKER) 102 meq/L 98-107 (test code = 382) CO2 (BEAKER) 23 meq/L 22-29 (test code = 355) BLOOD UREA 29 mg/dL 7-21 H NITROGEN (BEAKER) (test code = 354) CREATININE 1.60 mg/dL 0.57-1.25 H (BEAKER) (test code = 358) GLUCOSE RANDOM 223 mg/dL 70-105 H (BEAKER) (test code = 652) CALCIUM (BEAKER) 10.1 mg/dL 8.4-10.2 (test code = 697) EGFR (BEAKER) 51 Interpretati on of eGFR (test code = mL/min/1.73 values Stage De scription 1092) sq m Result G1 Justine l or high >=90 G2 Mildly decreased 60-89 G3a Mildl y to moderately 45-5 9 G3b Moderately to s everely 30-44 G4 Severl y decreased 15-29 G5 Kidney failure <15Reported eGF R is based on the CKD-EPI 2020 equation that d oes not use a race coefficientEsti mated GFR is not as accur ate as Creatinine Judy emma in predicting glom erular filtration rate . Estimated GFR is not appl icable for dialysis patien ts Change Management Analyst ID - [id number] 06:52:19 Test Item Value Reference Range Interpretation Comments MAGNESIUM (BEAKER) (test code = 1.8 mg/dL 1.6-2.6 627) Change Management Analyst ID - MARCOCBC (HEMOGRAM ONLY)2022-11-06 06:30:50 Test Item Value Reference Range Interpretation Comments WHITE BLOOD CELL COUNT (BEAKER) 6.7 K/ L 3.5-10.5 (test code = 775) RED BLOOD CELL COUNT (BEAKER) 5.59 M/ L 4.63-6.08 (test code = 761) HEMOGLOBIN (BEAKER) (test code = 16.2 GM/DL 13.7-17.5 410) HEMATOCRIT (BEAKER) (test code = 48.0 % 40.1-51.0 411) MEAN CORPUSCULAR VOLUME (BEAKER) 86 fL 79-92 (test code = 753) MEAN CORPUSCULAR HEMOGLOBIN 29.0 pg 25.7-32.2 (BEAKER) (test code = 751) MEAN CORPUSCULAR HEMOGLOBIN CONC 33.8 GM/DL 32.3-36.5 (BEAKER) (test code = 752) RED CELL DISTRIBUTION WIDTH 13.0 % 11.6-14.4 (BEAKER) (test code = 412) PLATELET COUNT (BEAKER) (test 167 K/CU MM 150-450 code = 756) MEAN PLATELET VOLUME (BEAKER) 11.2 fL 9.4-12.4 (test code = 754) NUCLEATED RED BLOOD CELLS 0 /100 WBC 0-0 (BEAKER) (test code = 413) POCT-GLUCOSE [id number] 06:21:41 Test Item Value Reference Range Interpretation Comments POC-GLUCOSE METER 230 mg/dL 70-110 H : TESTED A T [facility] 6720 (BEAKER) (test code [facility], = 1538) [address]: Change Management Analyst/Techni ara ID = [id number] for Melanie Epps POCT-GLUCOSE [id number] 21:00:42 Test Item Value Reference Range Interpretation Comments POC-GLUCOSE METER 245 mg/dL 70-110 H : TESTED A T [facility] 6720 (BEAKER) (test code = [facility], 1538) 47[address]: Change Management Analyst/Techni ara ID = [id number] for Serna rris, Natalie PROTEIN, RANDOM [id number] 17:43:10 Test Item Value Reference Range Interpretation Comments PROTEIN, URINE (BEAKER) (test code = < mg/dL 0-14 1569) Change Management Analyst ID - BSCREATININE, RANDOM [id number] 17:41:16 Test Item Value Reference Range Interpretation Comments CREATININE URINE (BEAKER) (test 30.5 mg/dL code = 375) Reference Range: No NormalsOperator ID - BSSODIUM, RANDOM [id number] 17:41:16 Test Item Value Reference Range Interpretation Comments SODIUM URINE (BEAKER) (test code = 111 meq/L 243) Reference Range: No NormalsOperator ID - BSURINALYSIS WITH MICROSCOPIC IF [id number] 17:27:44 Test Item Value Reference Range Interpretation Comments COLOR (BEAKER) (test code = 470) Colorless CLARITY (BEAKER) (test code = 469) Clear SPECIFIC GRAVITY UA (BEAKER) (test 1.008 1.001-1.035 code = 468) PH UA (BEAKER) (test code = 467) 6.5 5.0-8.0 PROTEIN UA (BEAKER) (test code = Negative Negative 464) GLUCOSE UA (BEAKER) (test code = Negative Negative 365) KETONES UA (BEAKER) (test code = Negative Negative 371) BILIRUBIN UA (BEAKER) (test code = Negative Negative 462) BLOOD UA (BEAKER) (test code = 461) Negative Negative NITRITE UA (BEAKER) (test code = Negative Negative 465) LEUKOCYTE ESTERASE UA (BEAKER) Negative Negative (test code = 466) UROBILINOGEN UA (BEAKER) (test code 0.2 0.2-1.0 = 463) SOURCE(BEAKER) (test code = 2795) Change Management Analyst ID - [auto]Change Management Analyst ID - techPOCT-GLUCOSE [id number] 16:59:12 Test Item Value Reference Range Interpretation Comments POC-GLUCOSE METER 128 mg/dL 70-110 H : TESTED A T [facility] 6720 (BEAKER) (test code = [facility], 1538) 75459: Change Management Analyst/Techni ara ID = [id number] for ANNA BELLNA POCT-GLUCOSE [id number] 12:38:19 Test Item Value Reference Range Interpretation Comments POC-GLUCOSE METER 385 mg/dL 70-110 H : TESTED A T [facility] 6720 (BEAKER) (test code = [facility], 1538) 10600: Change Management Analyst/Techni ara ID = [id number] for BA BONIFACIOY, MARGARET POCT-GLUCOSE [id number] 06:29:32 Test Item Value Reference Range Interpretation Comments POC-GLUCOSE METER 240 mg/dL 70-110 H : TESTED A T [facility] 6720 (BEAKER) (test code = [facility], 1538) 32890: Change Management Analyst/Techni ara ID = [id number] for JANNET PARTIDA [id number] 05:25:06 Test Item Value Reference Range Interpretation Comments MAGNESIUM (BEAKER) (test code = 1.8 mg/dL 1.6-2.6 627) Change Management Analyst ID - SUNDAY GBASIC METABOLIC [id number] 05:25:05 Test Item Value Reference Range Interpretation Comments SODIUM (BEAKER) 135 meq/L 136-145 L (test code = 381) POTASSIUM 4.1 meq/L 3.5-5.1 (BEAKER) (test code = 379) CHLORIDE (BEAKER) 102 meq/L 98-107 (test code = 382) CO2 (BEAKER) 26 meq/L 22-29 (test code = 355) BLOOD UREA 26 mg/dL 7-21 H NITROGEN (BEAKER) (test code = 354) CREATININE 1.70 mg/dL 0.57-1.25 H (BEAKER) (test code = 358) GLUCOSE RANDOM 243 mg/dL 70-105 H (BEAKER) (test code = 652) CALCIUM (BEAKER) 9.4 mg/dL 8.4-10.2 (test code = 697) EGFR (BEAKER) 47 Interpretatio n of eGFR (test code = mL/min/1.73 values Stage De scription 1092) sq m Result G1 Justine l or high >=90 G2 Mildly decreased 60-89 G3a Mildl y to moderately 45-5 9 G3b Moderately to s everely 30-44 G4 Sever ly decreased 15-29 G5 Kidney failure <15Repo rted eGFR is based on the CKD-EPI 2020 equation t hat does not use a race coefficientEsti mated GFR is not as accur ate as Creatinine Judy carter in predicting glom erular filtration rate . Estimated GFR is not appl icable for dialysis patien ts Change Management Analyst ID - SUNDAY GCBC (HEMOGRAM ONLY)2022-11-05 04:35:22 Test Item Value Reference Range Interpretation Comments WHITE BLOOD CELL COUNT (BEAKER) 7.9 K/ L 3.5-10.5 (test code = 775) RED BLOOD CELL COUNT (BEAKER) 5.01 M/ L 4.63-6.08 (test code = 761) HEMOGLOBIN (BEAKER) (test code = 15.0 GM/DL 13.7-17.5 410) HEMATOCRIT (BEAKER) (test code = 44.3 % 40.1-51.0 411) MEAN CORPUSCULAR VOLUME (BEAKER) 88 fL 79-92 (test code = 753) MEAN CORPUSCULAR HEMOGLOBIN 29.9 pg 25.7-32.2 (BEAKER) (test code = 751) MEAN CORPUSCULAR HEMOGLOBIN CONC 33.9 GM/DL 32.3-36.5 (BEAKER) (test code = 752) RED CELL DISTRIBUTION WIDTH 13.2 % 11.6-14.4 (BEAKER) (test code = 412) PLATELET COUNT ([facility]) (test 143 K/CU MM 150-450 L code = 756) MEAN PLATELET VOLUME (AKER) 11.1 fL 9.4-12.4 (test code = 754) NUCLEATED RED BLOOD CELLS 0 /100 WBC 0-0 (AKER) (test code = 413) POCT-GLUCOSE [id number] 21:56:30 Test Item Value Reference Range Interpretation Comments POC-GLUCOSE METER 258 mg/dL 70-110 H : TESTED A T [facility] ([facility]) (test code = [facility], [facility]) 77472: Change Management Analyst/Techni ara ID = [id number] for Martin Strong POCT-GLUCOSE [id number] 16:06:51 Test Item Value Reference Range Interpretation Comments POC-GLUCOSE METER 208 mg/dL 70-110 H : TESTED A T [facility] 6720 ([facility]) (test code = [facility], 1538) 18695: Change Management Analyst/Techni ara ID = [id number] for JAMIR RODRIGUEZ [id number] 13:32:41 Test Item Value Reference Range Interpretation Comments ACTIVATED CLOTTING TIME 107 sec : 74 -137 seconds, ([facility]) (test code = Baseli ne: TESTED AT 441) [facility] 6720 [facility], 770 30: Change Management Analyst/Techni ara ID = [id number] for Annamaria Lemon POCT-GLUCOSE [id number] 11:27:08 Test Item Value Reference Range Interpretation Comments POC-GLUCOSE METER 322 mg/dL 70-110 H : TESTED A T [facility] 6720 ([facility]) (test code = [place], 1538) 26486: Change Management Analyst/Techni ara ID = [id number] for JAIMR RODRIGUEZ POCT-GLUCOSE [id number] 06:20:30 Test Item Value Reference Range Interpretation Comments POC-GLUCOSE METER 310 mg/dL 70-110 H : TESTED A T [facility] (BEAKER) (test code = [place], 1538) 28310: Change Management Analyst/Techni ara ID = [id number] for AL I (V), CRISTOBAL BASIC METABOLIC [id number] 04:46:06 Test Item Value Reference Range Interpretation Comments SODIUM (BEAKER) 134 meq/L 136-145 L (test code = 381) POTASSIUM 4.1 meq/L 3.5-5.1 (BEAKER) (test code = 379) CHLORIDE (BEAKER) 105 meq/L 98-107 (test code = 382) CO2 (BEAKER) 21 meq/L 22-29 L (test code = 355) BLOOD UREA 25 mg/dL 7-21 H NITROGEN (BEAKER) (test code = 354) CREATININE 1.57 mg/dL 0.57-1.25 H (BEAKER) (test code = 358) GLUCOSE RANDOM 305 mg/dL 70-105 H (BEAKER) (test code = 652) CALCIUM (BEAKER) 8.8 mg/dL 8.4-10.2 (test code = 697) EGFR (BEAKER) 52 Interpretatio n of eGFR (test code = mL/min/1.73 values Stage De scription 1092) sq m Result G1 Norm al or high >=90 G2 Mildly decreased 60-89 G3a Mildl y to moderately 45-5 9 G3b Moderately to s everely 30-44 G4 Severl y decreased 15-29 G5 Kidne y failure <15Reported eGF R is based on the CKD-EPI 2020 equation that d oes not use a race coefficientEsti mated GFR is not as accur ate as Creatinine Judy carter in predicting glom erular filtration rate . Estimated GFR is not appl icable for dialysis patien ts Change Management Analyst ID - [id number] 04:46:06 Test Item Value Reference Range Interpretation Comments MAGNESIUM (BEAKER) (test code = 1.7 mg/dL 1.6-2.6 627) Change Management Analyst ID - MARCOCBC (HEMOGRAM ONLY)2022-11-04 04:05:25 Test Item Value Reference Range Interpretation Comments WHITE BLOOD CELL COUNT (BEAKER) 9.5 K/ L 3.5-10.5 (test code = 775) RED BLOOD CELL COUNT (BEAKER) 4.83 M/ L 4.63-6.08 (test code = 761) HEMOGLOBIN (BEAKER) (test code = 14.4 GM/DL 13.7-17.5 410) HEMATOCRIT (BEAKER) (test code = 42.1 % 40.1-51.0 411) MEAN CORPUSCULAR VOLUME (BEAKER) 87 fL 79-92 (test code = 753) MEAN CORPUSCULAR HEMOGLOBIN 29.8 pg 25.7-32.2 (BEAKER) (test code = 751) MEAN CORPUSCULAR HEMOGLOBIN CONC 34.2 GM/DL 32.3-36.5 (BEAKER) (test code = 752) RED CELL DISTRIBUTION WIDTH 13.3 % 11.6-14.4 (BEAKER) (test code = 412) PLATELET COUNT (BEAKER) (test 138 K/CU MM 150-450 L code = 756) MEAN PLATELET VOLUME (BEAKER) 10.9 fL 9.4-12.4 (test code = 754) NUCLEATED RED BLOOD CELLS 0 /100 WBC 0-0 (BEAKER) (test code = 413) POCT-GLUCOSE [id number] 01:38:39 Test Item Value Reference Range Interpretation Comments POC-GLUCOSE METER 389 mg/dL 70-110 H : TESTED A T [facility] 6720 ([facility]) (test code = [facility], 1538) 14038: Change Management Analyst/Techni ara ID = [id number] for AL I (V), CRISTOBAL POCT-GLUCOSE [id number] 16:37:18 Test Item Value Reference Range Interpretation Comments POC-GLUCOSE METER 358 mg/dL 70-110 H : TESTED A T [facility] 6720 (BEAKER) (test code = [facility], 1538) 41600: Change Management Analyst/Techni ara ID = [id number] for Of futt, Leoneldouglasney [id number] 15:01:12 Test Item Value Reference Range Interpretation Comments ACTIVATED CLOTTING TIME 131 sec : 74 -137 seconds, (BEAKER) (test code = Baseli ne: TESTED AT 441) [facility], 770 30: Change Management Analyst/Techni ara ID = [id number] for Of Annamaria estrada HEMOGLOBIN [id number] 13:38:36 Test Item Value Reference Range Interpretation Comments HEMOGLOBIN A1C 12.1 % See_Comment H [Automated m essage] ELECTROPHORESIS ([facility]) The system which (test code = 3811) generated this result transmitted ref erence range: <=5.6%. The reference range was not used to int erpret this result as normal/abnormal . "The A1c is measured using a NGSP-certified method. HbA1c value equal to or greater than 6.5% as thediagnosis cutoff for diabetes. An HbA1c value of 5.7- 6.4% indicates increased risk for diabetes (prediabetes)."Change Management Analyst ID - NOEL 2022-11-03 11:39:28 Test Item Value Reference Range Interpretation Comments PARTIAL THROMBOPLASTIN TIME 48.5 seconds 22.5-36.0 H ([facility]) (test code = 760) POCT-GLUCOSE [id number] 11:24:40 Test Item Value Reference Range Interpretation Comments POC-GLUCOSE METER 260 mg/dL 70-110 H : TESTED A T [facility] ([facility]) (test code = [facility], 1538) 70330: Change Management Analyst/Techni ara ID = [id number] for Of Annamaria estrada POCT-GLUCOSE [id number] 07:30:39 Test Item Value Reference Range Interpretation Comments POC-GLUCOSE METER 350 mg/dL 70-110 H : TESTED A T [facility] 6720 ([facility]) (test code = [facility], 1538) 99424: Change Management Analyst/Techni ara ID = [id number] for Ma rtponcez, Dorota TSH/FREE T4 IF [id number] 06:18:35 Test Item Value Reference Range Interpretation Comments THYROID STIMULATING HORMONE 1.550 uIU/mL 0.350-4.940 ([facility]) (test code = 772) Change Management Analyst ID - SHY [id number] 05:21:51 Test Item Value Reference Range Interpretation Comments PARTIAL THROMBOPLASTIN TIME 74.2 seconds 22.5-36.0 H ([facility]) (test code = 760) POCT-GLUCOSE [id number] 04:09:31 Test Item Value Reference Range Interpretation Comments POC-GLUCOSE METER 376 mg/dL 70-110 H : TESTED Edgardo T [facility] 6720 (BEAKER) (test code = [place], 1538) [address]: Change Management Analyst/Techni ara ID = [id number] for Giancarlo Orantes HIGH SENSITIVITY TROPONIN [id number] 04:02:05 Test Item Value Reference Range Interpretation Comments HIGH SENSITIVITY TROPONIN I (test 23977 pg/ml <=35 HH code = 0925987) Change Management Analyst ID - Nuno MANAGER SHIP STAT High Sensitivity Troponin-I results should be used in conjunction with other diagnostic information such as ECG, clinical observations and information, and patientsymptoms to aid in the diagnosis of ND.Change Management Analyst ID - [id number] 03:57:46 Test Item Value Reference Range Interpretation Comments PARTIAL THROMBOPLASTIN TIME > seconds 22.5-36.0 HH (BEAKER) (test code = 760) BASIC METABOLIC [id number] 03:53:35 Test Item Value Reference Range Interpretation Comments SODIUM (BEAKER) 133 meq/L 136-145 L (test code = 381) POTASSIUM 4.5 meq/L 3.5-5.1 (BEAKER) (test code = 379) CHLORIDE (BEAKER) 102 meq/L 98-107 (test code = 382) CO2 (BEAKER) 19 meq/L 22-29 L (test code = 355) BLOOD UREA 24 mg/dL 7-21 H NITROGEN (BEAKER) (test code = 354) CREATININE 1.50 mg/dL 0.57-1.25 H (BEAKER) (test code = 358) GLUCOSE RANDOM 463 mg/dL 70-105 HH (BEAKER) (test code = 652) CALCIUM (BEAKER) 9.3 mg/dL 8.4-10.2 (test code = 697) EGFR (BEAKER) 55 Interpretatio n of eGFR (test code = mL/min/1.73 values Stage D escription 1092) sq m Result G1 Justine l or high >=90 G2 Mildly decreased 60-89 G3a Mildl y to moderately 45-5 9 G3b Moderately to s everely 30-44 G4 Severl y decreased 15-29 G5 Kidney failure <15Reported eGF R is based on the CKD-EPI 2020 equation that d oes not use a race coefficientEsti mated GFR is not as accur ate as Creatinine Judy emma in predicting glom erular filtration rate . Estimated GFR is not appl icable for dialysis patien ts Change Management Analyst ID - SHY [id number] 03:50:56 Test Item Value Reference Range Interpretation Comments MAGNESIUM (BEAKER) (test code = 1.8 mg/dL 1.6-2.6 627) Change Management Analyst ID - SHY LLIPID [id number] 03:50:56 Test Item Value Reference Range Interpretation Comments TRIGLYCERIDES (BEAKER) (test code = 182 mg/dL 540) CHOLESTEROL (BEAKER) (test code = 156 mg/dL 631) HDL CHOLESTEROL (BEAKER) (test code 31 mg/dL = 976) LDL CHOLESTEROL CALCULATED (BEAKER) 89 mg/dL (test code = 633) Triglyceride Reference Range: Low Risk <150 Borderline 150-199 High Risk 200- 499 Very High Risk >=500Cholesterol Reference Range: Low Risk <200 Borderline 200-239 High Risk >240HDL Cholesterol Reference Range: Low Risk >=60 High Risk <40LDL Cholesterol Reference Range: Optimal <100 Near Optimal 100-129 Borderline 130-159 High 160-189 Very High >=190 Change Management Analyst ID - SHY LHEPATIC FUNCTION [id number] 03:50:56 Test Item Value Reference Range Interpretation Comments TOTAL PROTEIN (BEAKER) (test code = 6.5 gm/dL 6.0-8.3 770) ALBUMIN (BEAKER) (test code = 1145) 3.5 g/dL 3.5-5.0 BILIRUBIN TOTAL (BEAKER) (test code 0.8 mg/dL 0.2-1.2 = 377) BILIRUBIN DIRECT (BEAKER) (test 0.2 mg/dL 0.1-0.5 code = 706) ALKALINE PHOSPHATASE (BEAKER) (test 73 U/L 40-150 code = 346) AST (SGOT) (BEAKER) (test code = 77 U/L 5-34 H 353) ALT (SGPT) (BEAKER) (test code = 24 U/L 6-55 347) Change Management Analyst ID - SHY LCBC (HEMOGRAM ONLY)2022-11-03 03:21:26 Test Item Value Reference Range Interpretation Comments WHITE BLOOD CELL COUNT (BEAKER) 10.3 K/ L 3.5-10.5 (test code = 775) RED BLOOD CELL COUNT (BEAKER) 5.17 M/ L 4.63-6.08 (test code = 761) HEMOGLOBIN (BEAKER) (test code = 15.5 GM/DL 13.7-17.5 410) HEMATOCRIT (BEAKER) (test code = 44.5 % 40.1-51.0 411) MEAN CORPUSCULAR VOLUME (BEAKER) 86 fL 79-92 (test code = 753) MEAN CORPUSCULAR HEMOGLOBIN 30.0 pg 25.7-32.2 (BEAKER) (test code = 751) MEAN CORPUSCULAR HEMOGLOBIN CONC 34.8 GM/DL 32.3-36.5 (BEAKER) (test code = 752) RED CELL DISTRIBUTION WIDTH 13.2 % 11.6-14.4 (BEAKER) (test code = 412) PLATELET COUNT (BEAKER) (test 167 K/CU MM 150-450 code = 756) MEAN PLATELET VOLUME (BEAKER) 11.6 fL 9.4-12.4 (test code = 754) NUCLEATED RED BLOOD CELLS 0 /100 WBC 0-0 (BEAKER) (test code = 413) [id number] 02:21:58 Test Item Value Reference Range Interpretation Comments ACTIVATED CLOTTING TIME 245 sec : 74 -137 seconds, (BEAKER) (test code = Dada ne: TESTED AT 441) [address], [address]70 [address]: Change Management Analyst/Techni ara ID = [id number] for Po ku, Mely [id number] 01:47:47 Test Item Value Reference Range Interpretation Comments ACTIVATED CLOTTING TIME 311 sec : 74 -137 seconds, (BEAKER) (test code = Baseli ne: TESTED AT 441) [facility] [address] [place] [address], 770 [address]: Change Management Analyst/Techni ara ID = [id number] for Po ku, Mely [id number] 01:31:53 Test Item Value Reference Range Interpretation Comments ACTIVATED CLOTTING TIME 522 sec : 74 -137 seconds, (BEAKER) (test code = Baseli ne: TESTED AT 441) [address], 770 [address]: Change Management Analyst/Techni ara ID = [id number] for Mely Colon [id number] 01:15:10 Test Item Value Reference Range Interpretation Comments ACTIVATED CLOTTING TIME 227 sec : 74 -137 seconds, (BEAKER) (test code = Baseli ne: TESTED AT 441) [address], [facility] 30: Change Management Analyst/Techni ara ID = [id number] for Boo Sanchez [id number] 00:16:37 Test Item Value Reference Range Interpretation Comments ACTIVATED CLOTTING TIME 125 sec : 74 -137 seconds, (BEAKER) (test code = Baseli ne: TESTED AT 441) [address], [facility] 30: Change Management Analyst/Techni ara ID = [id number] for AL I (V), CRISTOBAL POCT-GLUCOSE [id number] 21:30:44 Test Item Value Reference Range Interpretation Comments POC-GLUCOSE METER 320 mg/dL 70-110 H : TESTED A T [place] [address] (BEAKER) (test code = [facility], 1538) [address]: Change Management Analyst/Techni ara ID = [id number] for AL I (V), CRISTOBAL [id number] 18:01:34 Test Item Value Reference Range Interpretation Comments ACTIVATED CLOTTING TIME 197 sec : 74 -137 seconds, (BEAKER) (test code = Baseli ne: TESTED AT 441) [address], [facility] 30: Change Management Analyst/Techni ara ID = [id number] for Boo Sanchez [id number] 15:53:35 Test Item Value Reference Range Interpretation Comments ACTIVATED CLOTTING TIME 269 sec : 74 -137 seconds, (BEAKER) (test code = Baseli ne: TESTED AT 441) [address], [facility] 30: Change Management Analyst/Techni ara ID = [id number] for RACHELL IBARRA [id number] 15:23:26 Test Item Value Reference Range Interpretation Comments ACTIVATED CLOTTING TIME 257 sec : 74 -137 seconds, (BEAKER) (test code = Baseli ne: TESTED AT 441) [address] [place], [address]: Change Management Analyst/Techni ara ID = [id number] for RACHELL IBARRA [id number] 14:54:03 Test Item Value Reference Range Interpretation Comments ACTIVATED CLOTTING TIME 209 sec : 74 -137 seconds, (BEAKER) (test code = Dada ne: TESTED AT 441) [facility] [address] [facility], [address] 30: Change Management Analyst/Techni ara ID = [id number] for RACHELL IBARRA HEMOGLOBIN [id number] 06:44:10 Test Item Value Reference Range Interpretation Comments HEMOGLOBIN A1c (test 13.0 % 4.2-5.6 H [employer] code = 29349) ASSOCIATION IDELINES FOR HGB A1C: PREDIABETES/INC REASED RISK . . . . . . . 5 .7-6.4% DIAGNOSIS OF DI ABETES . . . . . . . . . >=6 .5% WITH CONFIRMATION OR APPROPRIATE SYMPTOMS NOTE: ASSAY MAY BE AFFECTED BY HEMOGLOBINOPATH IES (SICKLE CELL ANEMIA, S- C DISEASE, OTHERS) OR SUHAS FICIALLY LOWERED BY DECR EASED RED CELL SURVIVAL ( HEMOLYTIC ANEMIAS, BLOOD LOSS, ETC.). CONSIDER ALTERN ATE TESTING OR LABORATORY C ONSULTATION. PSA, [id number] 05:35:36 Test Item Value Reference Range Interpretation Comments PSA, TOTAL 0.46 NG/ML See_Comment NOTE: Methodol ogy is Josi (test code = Eric Electroch emiluminescence 2606) Immunoassay tra ceable to WHO reference stand korina 96/760. UNLESS OTHERWIS E INDICATED, ALL TESTING PERFORM ED ATCLINICAL PATHOLOGY FORMERLY [facility] [place], [facility]. [address] [place] [id number] LABORATORY DIRE CTOR: EDUARD JACOBS M.D. CLIA NUMBER [id number] [place]. [id number] [A utomated message] The sy stem which generated this result transmitted ref erence range: <=4.00. The ref erence range was not used to int erpret this result as justine l/abnormal. TSH, THIRD [id number] 05:35:36 Test Item Value Reference Range Interpretation Comments TSH, THIRD GENERATION (test code 2.730 UIU/ML 0.400-4.100 = 2821) LIPID [id number] 05:07:51 Test Item Value Reference Range Interpretation [...] CALCULATE D LDL IS BASED ON NATALIE -RICARDO METHOD WHICHINC LUDES ADJUSTABLE TRIGLYCERIDE:VL DL CHOLESTEROL RAT IO.THIS FACTOR VARIES B Y MEASURED TRIGLY CERIDE AND NON-HDLCHOL ESTEROL CONCENTRATIONS WITH INCREASED CALCU LATED LDL SEENIN HIGH ER TRIGLYCERIDE OR LOWER NON-HDL SPECIME NS. FOR MOREINFORMATION , SEE CLIENT ANNOUNCE MENT AT [email or web address] CalcLDL-C RISK RATIO LDL/HDL (NOTE) RATIO <3.55 UNABLE T O CALCULATE (test code = 2238) COMPREHENSIVE METABOLIC [id number] 05:07:51 Test Item Value Reference Range Interpretation Comments GLUCOSE (test code = 381 MG/DL 70-99 H 2216) BUN (test code = 30 MG/DL 6-20 H 2207) CREATININE (test 1.57 MG/DL 0.80-1.40 H code = 2214) eGFR (2020 CKD-EPI) 51 ML/MIN/1.73 >60 L (test code = 30780) CALC BUN/CREAT (test 19 RATIO 6-28 code = 2235) SODIUM (test code = 137 MEQ/L [id number]) POTASSIUM (test code 5.2 MEQ/L 3.5-5.4 = 222) CHLORIDE (test code 98 MEQ/L 95-107 = 221) CARBON DIOXIDE (test 26 MEQ/L 19-31 code = 2206) CALCIUM (test code = 10.4 MG/DL 8.5-10.5 2208) PROTEIN, TOTAL (test 7.9 G/DL 6.1-8.3 code = 222) ALBUMIN (test code = 4.7 G/DL 3.5-5.2 2200) CALC GLOBULIN (test 3.2 G/DL 1.9-3.7 code = 2240) CALC A/G RATIO (test 1.5 RATIO 1.0-2.6 code = 2234) BILIRUBIN, TOTAL 0.6 MG/DL See_Comment [Automated message] (test code = 2206) The syste m which generated this result transmit rosalinda reference range : <=1.2. The refe rence range was not u sed to interpret th is result as normal/abnormal . ALKALINE PHOSPHATASE 105 U/L 40-123 (test code = 2203) AST (test code = 13 U/L 9-50 2217) ALT (test code = 20 U/L 5-50 2218) VITAMIN D, 25 [id number] 04:30:45 Test Item Value Reference Range Interpretation [...] . NG/ML 30-100 CBC W/AUTO DIFF WITH [id number] 02:32:39 Test Item Value Reference Range Interpretation [...] RBCS 0.00 K/UL 0.00-0.11 (test code = 69625)
[2023-03-23] MEDS ORDERED: MORPHINE 4 MG/ML SYR ONE (14:29)
[2023-03-23] MEDS ORDERED: ONDANSETRON 4 MG/2 ML VIAL ONE (14:29)
--- NOTE | 2023-03-23 14:41 | RAD REPORT ---
EXAM DESCRIPTION: CT - Stone Protocol - 03/23/2023 2:25 pm CLINICAL HISTORY: Abdominal pain. Right flank pain COMPARISON: 2020 TECHNIQUE: Computed axial tomography of the abdomen pelvis was obtained without oral or IV contrast. Lack of IV and oral contrast limits evaluation of solid organs, appendix, bowel, and vessels. Alcantara l reformatted images were obtained and reviewed. All CT scans are performed using dose optimization technique as appropriate and may include automated exposure control or mA/KV adjustment according to patient size. FINDINGS: A renal calculus is not seen. An ureteral calculus is not noted. A bladder calculus is not present. No hydronephrosis. A small left renal cyst Small right inguinal hernia. Small umbilical hernia The liver, spleen, pancreas and adrenals appear grossly normal There is no evidence of diverticulitis. The appendix appears normal IMPRESSION: Negative for a genitourinary calculus
[2023-03-23 14:45] LABS: Absolute Lymphocytes (CBC) 1.7 K/uL (0.7-4.9); Lymphocytes % 20.9 % (15.3-44.8); MCV 87.5 fL (80-100); MPV 9.2 fL (7.6-11.3)
[2023-03-23 15:00] LABS: Albumin 3.3 g/dL (3.4-5.0); Bilirubin Total 0.4 mg/dL (0.2-1.0); Potassium 4.1 mEq/L (3.5-5.1); Protein, Total 7.5 g/dL (6.4-8.2)
[2023-03-23 15:04] LABS: Specific Gravity 1.024 (1.005-1.030); Urine Bilirubin NEGATIVE (Negative); Urine Blood Negative (Negative); Urine Clarity Clear (Clear); Urine Color Colorless (Yellow); Urine Glucose 4+ (Over) (Negative); Urine Protein NEGATIVE (Negative); Urine Urobilinogen Normal (Normal)
[2023-03-23] MEDS ORDERED: KETOROLAC 30 MG/ML INJ ONE (15:10)
[2023-03-23] MEDS ORDERED: dexAMETHasone 10 MG/ML VIAL ONE (15:10)
[2023-03-23] MEDS ORDERED: NA CHLORIDE 0.9% 1,000 ML ONE (15:27)
--- NOTE | 2023-03-23 16:02 | ER ---
Nurse's Notes [facility] – [place], [place] Name: Kavon Francis Age: 58 yrs Sex: Male : 1965 Arrival Date: 03/23/2023 Time: 13:53 Bed 12 Private MD: Diagnosis: Low back pain Presentation: 03/23 14:09 Chief complaint: Patient states: Right lower back pain since Thursday. No known injury. nj1 Denies dysuria. Coronavirus screen: Vaccine status: Patient reports receiving the 2nd dose of the covid vaccine. Ebola Screen: Patient denies travel to an Ebola-affected area in the 21 days before illness onset. Initial Sepsis Screen: Does the patient meet any 2 criteria? No. Patient's initial sepsis screen is negative. Does the patient have a suspected source of infection? No. Patient's initial sepsis screen is negative. Risk Assessment: Do you want to hurt yourself or someone else? Patient reports no desire to harm self or others. Onset of symptoms was March 20, 2023. 14:09 Method Of Arrival: Ambulatory [facility] 14:09 Acuity: LUCI 3 nj1 Historical: - Allergies: 14:12 No Known Allergies; nj1 - PMHx: 14:12 Diabetes - IDDM; Hypertension; Myocardial infarction; nj1 - Immunization history:: Client reports receiving the 2nd dose of the Covid vaccine. - Social history:: Smoking status: Patient reports the use of cigarette tobacco products, denies chronic smoking, but will smoke occasionally. - Family history:: not pertinent. - Hospitalizations: : No recent hospitalization is reported. Screenin:22 [facility] ED Fall Risk Assessment (Adult) History of falling in the last 3 months, cm10 including since admission No falls in past 3 months (0 pts) Confusion or Disorientation No (0 pts) Intoxicated or Sedated No (0 pts) Impaired Gait No (0 pts) Mobility Assist Device Used No (0 pt) Altered Elimination No (0 pt) Score/Fall Risk Level 0 - 2 = Low Risk Oriented to surroundings, Maintained a safe environment, Hourly rounding (assess needs \T\ fall precautionary measures) done. Abuse screen: Denies threats or abuse. Denies injuries from another. Nutritional screening: No deficits noted. Tuberculosis screening: No symptoms or risk factors identified. Assessment: 15:16 Reassessment: Provider made aware that patient does not have a ride and per provider ok cm10 to give morphine. Pt educated that since he received morphine he will have to stay in the ED for 2-4hrs following the morphine administration. Pt verbalized understanding. 15:21 General: Appears in no apparent distress. comfortable, Behavior is calm, cooperative. cm10 Pain: Complains of pain in back Pain does not radiate. Pain began 2-3 days ago. Neuro: No deficits noted. Level of Consciousness is awake, alert, Oriented to person, place, time, situation. Cardiovascular: No deficits noted. Respiratory: No deficits noted. Airway is patent Respiratory effort is even, unlabored, Respiratory pattern is regular, symmetrical. Musculoskeletal: Reports pain in back and right low back and right mid back since 3 days. 16:30 Reassessment: Pt sleeping at this time. Respirations even and unlabored. cm10 17:26 Reassessment: No changes from previously documented assessment. Patient is alert, cm10 oriented x 3, equal unlabored respirations, skin warm/dry/pink. Upon standing, Patient started complaining of increased dizziness. Pt instructed to sit until he is no longer dizzy. 17:37 Reassessment: Pt states that he feels much better. Pt states that his dizziness has cm10 resolved. Pt A\T\Ox4, respirations even and unlabored. Pt leaving ambulatory with steady gait. Vital Signs: 14:09 BP 166 / 102; Pulse 73; Resp 18; Temp 98.3; Pulse Ox 98% ; Weight 88.9 kg; Height 5 ft. nj1 8 in. ; Pain 10/10; 15:21 Pain 7/10; cm10 15:21 Pain 7/10; cm10 17:28 BP 138 / 98; Pulse 66; Resp 16; Pulse Ox 98% on R/A; Pain 0/10; cm10 14:09 Body Mass Index 29.80 (88.90 kg, 172.72 cm) nj1 14:09 Pain Scale: Adult nj1 15:21 Pain Scale: Adult cm10 15:21 Pain Scale: Adult cm10 17:28 Pain Scale: Adult cm10 ED Course: 13:54 Patient arrived in ED. rg4 13:59 David Harrison MD is Attending Physician. rn 14:12 Triage completed. nj1 14:14 Arm band placed on left wrist. nj1 14:19 Gladys Watkins, ESTELA is Primary Nurse. cm10 14:26 CT Stone Protocol In Process Unspecified. EDMS 14:36 Initial lab(s) drawn, by me, sent to lab. Inserted saline lock: 20 gauge in right cm10 forearm, using aseptic technique. Blood collected. 14:37 CBC with Diff Sent. cm10 14:37 CMP Sent. cm10 14:37 Lipase Sent. cm10 14:47 Urinalysis w/ reflexes Sent. cm10 14:48 Patient has correct armband on for positive identification. Bed in low position. Call cm10 light in reach. Pulse ox on. NIBP on. Door closed. Warm blanket given. 17:28 No provider procedures requiring assistance completed. IV discontinued, intact, cm10 bleeding controlled, No redness/swelling at site. Pressure dressing applied. Administered Medications: 14:47 Drug: Ondansetron IVP 4 mg Route: IVP; Site: right femoral; cm10 15:21 Follow up: Response: No adverse reaction cm10 14:47 Drug: morphine IVP or IV 4 mg Route: IVP; Infused Over: 4 mins; Site: right forearm; cm10 15:21 Follow up: Pain 7/10 Adult; Response: No adverse reaction; Pain is decreased cm10 15:05 Drug: Ketorolac IVP 30 mg Route: IVP; Site: right forearm; cm10 15:21 Follow up: Pain 7/10 Adult; Response: No adverse reaction; Pain is decreased cm10 15:05 Drug: Decadron - Dexamethasone IVP 10 mg Route: IVP; Site: right forearm; cm10 15:21 Follow up: Response: No adverse reaction cm10 15:21 Drug: NS 0.9% IV 1000 ml Route: IV; Rate: 1000 ml; Site: right forearm; cm10 16:37 Follow up: Response: No adverse reaction; IV Status: Completed infusion; IV Intake: cm10 1000ml Medication: 17:29 VIS not applicable for this client. cm10 Intake: 16:37 IV: 1000ml; Total: 1000ml. cm10 Outcome: 16:02 Discharge ordered by MD. sequeira 17:38 Discharged to home ambulatory. cm10 17:38 Condition: good 17:38 Discharge instructions given to patient, Instructed on discharge instructions, follow up and referral plans. medication usage, Demonstrated understanding of instructions, follow-up care, medications, Prescriptions given X 3. 17:38 Patient left the ED. cm10 Signatures: Dispatcher [employer] EDMS David Harrison MD MD rn Garcia, Rubi 4 Justine Morillo RN RN nj1 Gladys Watkins RN RN cm10
--- NOTE | 2023-03-23 16:02 | EDPHYS ---
Physician Documentation [facility] Name: Kavon Francis Age: 58 yrs Sex: Male : 1965 Arrival Date: 03/23/2023 Time: 13:53 Bed 12 Private MD: ED Physician David Harrison HPI: 03/23 14:11 This 58 yrs old Male presents to ER via Unassigned with complaints of Low Back rn Pain. 14:11 The patient presents with pain that is acute, with no known mechanism of injury. The rn symptoms are located in the low back, right mid back and right low back. The pain does not radiate. The problem was sustained from unknown cause. Onset: The symptoms/episode began/occurred yesterday. Modifying factors: The patient symptoms are alleviated by nothing, the patient symptoms are aggravated by any movement. Associated signs and symptoms: Pertinent positives: none Pertinent negatives: abdominal pain, chest pain, dysuria, hematuria, incontinence, numbness, tingling, urinary retention. Severity of symptoms: At their worst the symptoms were moderate, in the emergency department the symptoms are unchanged. The patient has experienced a previous episode. The patient has not recently seen a physician. Pt reports 2 days of right lower back pain, hurts to move, no radiation, no trauma or injury noted. No abd pain. No urinary symptoms. No fever.. Historical: - Allergies: 14:12 No Known Allergies; nj1 - PMHx: 14:12 Diabetes - IDDM; Hypertension; Myocardial infarction; nj1 - Immunization history:: Client reports receiving the 2nd dose of the Covid vaccine. - Social history:: Smoking status: Patient reports the use of cigarette tobacco products, denies chronic smoking, but will smoke occasionally. - Family history:: not pertinent. - Hospitalizations: : No recent hospitalization is reported. ROS: 14:11 Constitutional: Negative for fever, chills, and weight loss, Cardiovascular: Negative rn for chest pain, palpitations, and edema, Respiratory: Negative for shortness of breath, cough, wheezing, and pleuritic chest pain, Abdomen/GI: Negative for abdominal pain, nausea, vomiting, diarrhea, and constipation, Back: + right lower back pain : Negative for injury, bleeding, discharge, and swelling, MS/Extremity: Negative for injury and deformity, Skin: Negative for injury, rash, and discoloration, Neuro: Negative for headache, weakness, numbness, tingling, and seizure. Exam: 14:11 Constitutional: This is a well developed, well nourished patient who is awake, alert, rn appears in pain Head/Face: Normocephalic, atraumatic. Cardiovascular: Regular rate and rhythm. No pulse deficits. Respiratory: No increased work of breathing, no retractions or nasal flaring. Abdomen/GI: soft, non-tender, non-distended Skin: Warm, dry MS/ Extremity: Pulses equal, no cyanosis. Neurovascular intact. Full, normal range of motion. Equal circumference. Neuro: Awake and alert, GCS 15 Vital Signs: 14:09 BP 166 / 102; Pulse 73; Resp 18; Temp 98.3; Pulse Ox 98% ; Weight 88.9 kg; Height 5 ft. nj1 8 in. ; Pain 10/10; 15:21 Pain 7/10; cm10 15:21 Pain 7/10; cm10 17:28 BP 138 / 98; Pulse 66; Resp 16; Pulse Ox 98% on R/A; Pain 0/10; cm10 14:09 Body Mass Index 29.80 (88.90 kg, 172.72 cm) nj1 14:09 Pain Scale: Adult nj1 15:21 Pain Scale: Adult cm10 15:21 Pain Scale: Adult cm10 17:28 Pain Scale: Adult cm10 MDM: 13:59 Patient medically screened. rn 16:01 Differential diagnosis: arthritis, strain, sciatica, Herniated disc UTI. Data reviewed: rn vital signs, nurses notes, lab test result(s), radiologic studies, CT scan, and as a result, I will discharge patient. Counseling: I had a detailed discussion with the patient and/or guardian regarding: the historical points, exam findings, and any diagnostic results supporting the discharge/admit diagnosis, lab results, radiology results, the need for outpatient follow up, to return to the emergency department if symptoms worsen or persist or if there are any questions or concerns that arise at home. Response to treatment: the patient's symptoms have mildly improved after treatment, and as a result, I will discharge patient. Special discussion: I discussed with the patient/guardian in detail that at this point there is no indication for admission to the hospital. It is understood, however, that if the symptoms persist or worsen the patient needs to return immediately for re-evaluation. 03/23 14:11 Order name: CBC with Diff; Complete Time: 14:48 rn 03/23 14:11 Order name: CMP; Complete Time: 15:08 rn 03/23 14:11 Order name: Lipase; Complete Time: 15:08 rn 03/23 14:11 Order name: Urinalysis w/ reflexes; Complete Time: 15:08 rn 03/23 14:11 Order name: CT Stone Protocol; Complete Time: 14:46 rn 03/23 14:11 Order name: IV Saline Lock; Complete Time: 14:37 rn 03/23 14:11 Order name: Labs collected and sent; Complete Time: 14:37 rn Administered Medications: 14:47 Drug: Ondansetron IVP 4 mg Route: IVP; Site: right femoral; cm10 15:21 Follow up: Response: No adverse reaction cm10 14:47 Drug: morphine IVP or IV 4 mg Route: IVP; Infused Over: 4 mins; Site: right forearm; cm10 15:21 Follow up: Pain 7/10 Adult; Response: No adverse reaction; Pain is decreased cm10 15:05 Drug: Ketorolac IVP 30 mg Route: IVP; Site: right forearm; cm10 15:21 Follow up: Pain 7/10 Adult; Response: No adverse reaction; Pain is decreased cm10 15:05 Drug: Decadron - Dexamethasone IVP 10 mg Route: IVP; Site: right forearm; cm10 15:21 Follow up: Response: No adverse reaction cm10 15:21 Drug: NS 0.9% IV 1000 ml Route: IV; Rate: 1000 ml; Site: right forearm; cm10 16:37 Follow up: Response: No adverse reaction; IV Status: Completed infusion; IV Intake: cm10 1000ml Disposition Summary: 03/23/23 16:02 Discharge Ordered Location: Home rn Problem: new rn Symptoms: have improved rn Condition: Stable rn Diagnosis - Low back pain rn Followup: rn - With: Private Physician - When: As needed - Reason: Recheck today's complaints, Re-evaluation by your physician Discharge Instructions: - Discharge Summary Sheet rn - Acute Back Pain, Adult rn - Musculoskeletal Pain rn Forms: - Medication Reconciliation Form rn - Thank You Letter rn - Antibiotic garnisher - Prescription Opioid Use rn - [email or web address] rn - Work release form cm10 Prescriptions: - Cyclobenzaprine 10 mg Oral Tablet - take 1 tablet by ORAL route every 8 hours As needed; 12 tablet; Refills: 0, rn Product Selection Permitted - Tramadol 50 mg Oral Tablet - take 1 tablet by ORAL route every 8 hours as needed; 12 tablet; Refills: 0, rn Product Selection Permitted - Medrol (Jarrod) 4 mg Oral Tablets, Dose Pack - take 1 tablet by ORAL route as directed - follow package instructions; 1 rn packet; Refills: 0, Product Selection Permitted Signatures: Dispatcher [employer] EDDavid Staton MD MD rn Jaco, Norma, RN RN nj1 Gladys Watkins RN RN cm10
[2023-03-23 17:58] VITALS: TEMP 98.3; O2SAT 98
[2023-03-23 18:05] VITALS: BP 138/98
== END 2023-03-23 17:38 | disposition home or self-care (01) ==
LOC: ER 13:53
DX: M54.50 Low back pain, unspecified (principal); F17.210 Nicotine dependence, cigarettes, uncomplicated
CPT/HCPCS: 85025; 36415; 81003; 83690; 80053; 76377; 74176; J1100; J2405; J7030

== ENCOUNTER → 2023-11-17 | Emergency (ER) | payer OTHER ==
[~2023-11-17] MED LIST: NA CHLORIDE 0.9% 500 ML ONE
[2023-11-17 19:07] LABS: Absolute Lymphocytes (CBC) 2.4 K/uL (0.7-4.9); Hematocrit 48.8 % (39.6-49.0); MCV 86.8 fL (80-100); MPV 9.1 fL (7.6-11.3); Platelets 188 thou/uL (152-406); RBC Red Blood Cell Count 5.62 M/uL (4.33-5.43)
[2023-11-17 19:28] LABS: Magnesium 1.8 mg/dL (1.6-2.4); Potassium 3.9 mEq/L (3.5-5.1)
--- NOTE | 2023-11-17 19:39 | RAD REPORT ---
EXAM DESCRIPTION: Mikel Single View11/17/2023 7:29 pm CLINICAL HISTORY: Abdominal pain COMPARISON: none FINDINGS: The lungs appear clear of acute infiltrate. The heart is normal size IMPRESSION: No acute abnormalities displayed
[2023-11-17 20:03] LABS: Troponin High Sensitivity 7.9 pg/mL (<58.9)
--- NOTE | 2023-11-17 20:47 | ER ---
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 COVID SYMPTOMS. 8 DAYS db AGO HAD POSITIVE COVID TEST. YESTERDAY STARTED FEELING WORSE. STATES FEELS WEAK AND LEG PAIN WITH SOB ON AMBULATION. 18:34 Method Of Arrival: Ambulatory db 18:43 Coronavirus screen: Client denies travel out of the [place] in the last 14 days. At this db time, the client does not indicate any symptoms associated with coronavirus-19. Ebola Screen: Patient negative for fever greater than or equal to 101.5 degrees Fahrenheit, and additional compatible Ebola Virus Disease symptoms Patient denies exposure to infectious person. Patient denies travel to an Ebola-affected area in the 21 days before illness onset. No symptoms or risks identified at this time. Initial Sepsis Screen: Does the patient meet any 2 criteria? No. Patient's initial sepsis screen is negative. Does the patient have a suspected source of infection? No. Patient's initial sepsis screen is negative. Risk Assessment: Do you want to hurt yourself or someone else? Patient reports no desire to harm self or others. Onset of symptoms was November 17, 2023. 18:43 Acuity: LUCI 3 db Historical: - Allergies: 18:36 No Known Allergies; db - PMHx: 18:36 Diabetes - IDDM; Hypertension; Myocardial infarction; db - Immunization history:: Adult Immunizations unknown. - Social history:: Smoking status: Patient denies any tobacco usage or history of. Screenin:[address] [facility] ED Fall Risk Assessment (Adult) History of falling in the last 3 months, cp4 including since admission No falls in past 3 months (0 pts) Confusion or Disorientation No (0 pts) Intoxicated or Sedated No (0 pts) Impaired Gait No (0 pts) Mobility Assist Device Used No (0 pt) Altered Elimination No (0 pt) Score/Fall Risk Level 0 - 2 = Low Risk Oriented to surroundings, Maintained a safe environment, Educated pt \T\ family on fall prevention, incl call for assistance when getting out of bed, Assessed \T\ reinforced patient's understanding of fall precautions, Provided non-skid footwear, Hourly rounding (assess needs \T\ fall precautionary measures) done. Abuse screen: Denies threats or abuse. Nutritional screening: No deficits noted. Tuberculosis screening: No symptoms or risk factors identified. Assessment: 21:33 General: Appears in no apparent distress. Behavior is calm, cooperative, appropriate cp4 for age. Pain: Complains of pain in chest. Vital Signs: 18:43 BP 165 / 109; Pulse 80; Resp 18; Temp 98.8; Pulse Ox 99% on R/A; db 21:33 BP 157 / 94; Pulse 82; Resp 18; Pulse Ox 99% ; cp4 ED Course: 18:11 Patient arrived in ED. im 18:16 [facility] kb 18:16 Karlos Wilburn MD is Attending Physician. kb 18:38 Arm band placed on right wrist. Patient placed in waiting room. db 18:44 Triage completed. db 18:58 Initial lab(s) drawn, by me, sent to lab. Inserted saline lock: 20 gauge in right ap3 forearm, using aseptic technique. Blood collected. 19:31 XRAY Chest (1 view) In Process Unspecified. EDMS 20:02 Mai Aldrich is Primary Nurse. cp4 21:33 Placed in gown. Bed in low position. Call light in reach. Side rails up X 1. Provided cp4 Education on: covid and hyperglycemia.. 21:33 No provider procedures requiring assistance completed. intact, bleeding controlled, No cp4 redness/swelling at site. Pressure dressing applied. Administered Medications: 20:38 Drug: NS 0.9% IV 500 ml IV at bolus once Route: IV; Rate: bolus; Site: right hand; cp4 21:32 Follow up: Response: No adverse reaction; IV Status: Completed infusion cp4 Medication: 21:33 VIS not applicable for this client. cp4 Point of Care Testing: Blood Glucose: 18:42 Blood Glucose: 337 mg/dL; db Ranges: Outcome: 20:46 Discharge ordered by . kb 21:33 Discharged to home ambulatory, cp4 21:33 Condition: stable 21:33 Discharge instructions given to patient, Instructed on discharge instructions, follow up and referral plans. Demonstrated understanding of instructions, follow-up care, medications, Prescriptions given X 1, 21:38 Patient left the ED. cp4 Signatures: Dispatcher [employer] EDHeather Stone, ALIA CORBIN-Umm Lee RN RN ap3 Keeley Juárez RN RN db Mendoza, Itzel im Potter, Christina cp4
--- NOTE | 2023-11-17 20:47 | EDPHYS ---
Physician Documentation [facility] Name: Kavon Francis Age: 58 yrs Sex: Male : 1965 Arrival Date: 11/17/2023 Time: 18:05 Bed 15 Private MD: ED Physician Karlos Wilburn HPI: 11/17 20:42 This 58 yrs old Male presents to ER via Ambulatory with complaints of COVID kb symptoms. 20:42 Patient is a 8-year-old male with a history of hypertension and diabetes who presents kb for fatigue and shortness of breath. States he tested positive for COVID 8 days ago and symptoms have not gotten any better. Reports fatigue and shortness of breath after walking and while working. Reports he ran out of his normal blood pressure and diabetes medication 4 days ago. States he normally takes metformin twice a day and used to take losartan but his doctor recently changed it and is not sure what he takes for blood pressure currently.. Historical: - Allergies: 18:36 No Known Allergies; db - PMHx: 18:36 Diabetes - IDDM; Hypertension; Myocardial infarction; db - Immunization history:: Adult Immunizations unknown. - Social history:: Smoking status: Patient denies any tobacco usage or history of. ROS: 20:46 Abdomen/GI: Negative for abdominal pain, nausea, vomiting, diarrhea, and constipation, kb 20:46 Constitutional: Positive for fatigue, malaise, 20:46 Respiratory: Positive for dyspnea on exertion, shortness of breath, 20:46 All other systems are negative, Exam: 20:46 Constitutional: This is a well developed, well nourished patient who is awake, alert, kb and in no acute distress. Head/Face: Normocephalic, atraumatic. ENT: Moist Mucous membranes Cardiovascular: Regular rate Respiratory: Respirations even and unlabored. No increased work of breathing. Talking in full sentences Skin: Warm, dry with normal turgor. Normal color. MS/ Extremity: Pulses equal, no cyanosis. Neurovascular intact. Full, normal range of motion. Neuro: Awake and alert, GCS 15, oriented to person, place, time, and situation. Moves all extremities. Normal gait. Vital Signs: 18:43 BP 165 / 109; Pulse 80; Resp 18; Temp 98.8; Pulse Ox 99% on R/A; db 21:33 BP 157 / 94; Pulse 82; Resp 18; Pulse Ox 99% ; cp4 MDM: 18:16 Patient medically screened. kb 20:44 Differential Diagnosis: Pneumonia Other Pulmonary edema, PE, COVID. Data reviewed: kb vital signs, nurses notes. Test considered but Not performed: CT: CT chest considered but D-dimer negative, oxygen 99% on room air respirations even unlabored, lungs clear bilaterally.. Historians other than the Patient: Daughter/Son: Daughter. Counseling: I had a detailed discussion with the patient and/or guardian regarding the historical points, exam findings, and any diagnostic results supporting the discharge/admit diagnosis, lab results, radiology results, the need for outpatient follow up, a family practitioner. ED course: Patient educated to follow-up with his PCP tomorrow for refills of his normal home medications. Educated on symptom management and return precautions. Verbal understanding received.. 11/17 18:42 Order name: Basic Metabolic Panel; Complete Time: 20:14 kb 11/17 18:42 Order name: CBC with Diff; Complete Time: 19:11 kb 11/17 18:42 Order name: D-Dimer; Complete Time: 19:17 kb 11/17 18:42 Order name: Magnesium; Complete Time: 20:14 kb 11/17 18:42 Order name: NT PRO-BNP; Complete Time: 20:14 kb 11/17 18:42 Order name: Troponin HS; Complete Time: 20:14 kb 11/17 18:54 Order name: Glucose, Ancillary Testing; Complete Time: 18:55 EDMS 11/17 18:42 Order name: XRAY Chest (1 view); Complete Time: 19:41 kb 11/17 18:42 Order name: EKG; Complete Time: 18:42 kb 11/17 18:42 Order name: Cardiac monitoring; Complete Time: 20:03 kb 11/17 18:42 Order name: EKG - Nurse/Tech; Complete Time: 20:14 kb 11/17 18:42 Order name: IV Saline Lock; Complete Time: 18:58 kb 11/17 18:42 Order name: Labs collected and sent; Complete Time: 18:58 kb 11/17 18:42 Order name: O2 Per Protocol; Complete Time: 19:59 kb 11/17 18:42 Order name: O2 Sat Monitoring; Complete Time: 19:59 kb Administered Medications: 20:38 Drug: NS 0.9% IV 500 ml IV at bolus once Route: IV; Rate: bolus; Site: right hand; cp4 21:32 Follow up: Response: No adverse reaction; IV Status: Completed infusion cp4 Point of Care Testing: Blood Glucose: 18:42 Blood Glucose: 337 mg/dL; db Ranges: Critical Glucose Levels:Adult <50 mg/dl or >400 mg/dl <40 mg/dl or >180 mg/dl Disposition Summary: 11/17/23 20:46 Discharge Ordered Notes: Location: Home kb Condition: Stable kb Diagnosis - SARS-associated coronavirus as the cause of diseases classified elsewhere kb - Diabetes mellitus due to underlying condition with hyperglycemia kb Followup: kb - With: Emergency Department - When: As needed - Reason: Worsening of condition Followup: kb - With: Private Physician - When: 2 - 3 days - Reason: Recheck today's complaints, Continuance of care, Re-evaluation by your physician Discharge Instructions: - Discharge Summary Sheet kb - Hyperglycemia, [id number] kb - COVID-19 kb - Viral Illness, Adult kb Forms: - Work release form kb - Medication Reconciliation Form kb - Thank You Letter kb - Antibiotic Education kb - Prescription Opioid Use kb - Patient Portal Instructions kb - Leadership Thank You Letter kb Prescriptions: - Metformin 500 mg Oral tablet - take 1 tablet ORAL route 2 times per day with morning meals AND evening meals; kb 30 tablet; Refills: 0, Product Selection Permitted Signatures: Dispatcher [employer] Heather Velez, Keeley Zuluaga, RN RN Mai Vidal 4
[2023-11-17 22:12] VITALS: BP 157/94; TEMP 98.8; O2SAT 99
== END ==
LOC: ER 18:05
DX: U07.1 COVID-19 (principal); E08.65 Diabetes mellitus due to underlying condition with hyperglycemia; I10 Essential (primary) hypertension; I25.2 Old myocardial infarction
CPT/HCPCS: 85025; 80048; 36415; 83735; 82947; 85379; 84484; 83880; 71045; J7040; 93005